=== PATIENT | male | born 1940 | race Caucasian/White ===

== ENCOUNTER 2021-08-24 13:51 | Inpatient (IN) | payer MEDICARE, OTHER, SELFPAY ==
--- NOTE | ~2021-08-24 | XR_ITS ---
EXAMINATION: XR CHEST XR KNEE-LEFT CLINICAL INFORMATION: Status post fall. Left knee pain. COMPARISON: None TECHNIQUE: 2 views of the left knee and single frontal view of the chest (2 images). FINDINGS: Chest: Low lung volumes present bilaterally. Both lungs are clear. Cardiomediastinal silhouette is within normal limits. Retrocardiac soft tissue prominence is present likely represent hiatal hernia. No pleural effusion or pneumothorax. Mild diffuse osteopenia. Left knee: Comminuted left distal femoral fracture is present with approximately 4.4 cm overlapping between the fracture fragments. No radiographic evidence of any patellar condyle of involvement or articular surface extension of the fracture line is present. Severe underlying osteoarthrosis is present involving the lateral and medial compartment. Significant soft tissue swelling is noted around the fracture. XR/XR knee LT 2V IMPRESSION: 1. Comminuted left distal femoral fracture with approximately 4.4 cm overlapping between the fracture fragments. No radiographic evidence of any condyle or articular surface involvement. 2. 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 3. Chest radiograph shows clear lungs.
--- NOTE | ~2021-08-24 | CT_ITS ---
EXAMINATION: CT ANGIOGRAM OF THE CHEST WITH AND WITHOUT CONTRAST (CT PULMONARY ANGIOGRAM FOR PE) CLINICAL INFORMATION: Reason for Exam sob COMPARISON: None TECHNIQUE: Prior to contrast administration, noncontrast localization images were obtained. Subsequently, multidetector volumetric imaging was performed from the thoracic inlet to below the diaphragms following the administration of 65 mL Omnipaque 350 intravenous contrast. No contrast reaction reported Sagittal, coronal, and MIP oblique sagittal reformatted images were obtained on the CT workstation, uploaded to PACS, and reviewed. This CT examination was performed using dose optimization techniques as appropriate, variously including the following: *Automated exposure control *Adjustment of mA and/or kV according to patient size (this includes techniques or standardized protocols for targeted exams where dose is matched to indication/reason for exam; i.e. extremities or head) *Use of iterative reconstruction technique Total exam dose-length product 434 mGy-cm FINDINGS: QUALITY OF STUDY/CONTRAST BOLUS: Satisfactory. PULMONARY ARTERIES: Acute pulmonary embolism present within the distal right main pulmonary artery extending into the upper and lower lobe as well as the middle lobe pulmonary arteries. No pulmonary embolism on left. THORACIC AORTA: No aneurysm or dissection. LUNG: Subsegmental atelectasis present within the dependent lower lobes bilaterally. No focal consolidation. No pneumothorax. PLEURA: No pleural effusion or pneumothorax. MEDIASTINUM: Mild cardiomegaly. Straightening of the interventricular septum, and increased RV:LV ratio, greater than 1 compatible with right heart strain and pulmonary hypertension. No pericardial effusion. No hilar or mediastinal lymphadenopathy. No evidence of septal bowing or right heart strain. CHEST WALL/AXILLA: No axillary or internal mammary lymphadenopathy. OSSEOUS STRUCTURES: No acute or suspicious osseous abnormality. UPPER ABDOMEN: Hepatic steatosis. Calcified periportal and portal caval lymph nodes indicative of prior granulomatous disease. There is a 5.0 cm simple fluid attenuating cyst in the upper pole of left kidney which is benign and follow-up. CT/CT angio chest PE protocol IMPRESSION: * Acute pulmonary emboli within the distal right pulmonary artery, extending into the upper, middle and lower lobe pulmonary arteries. * There is straightening of the interventricular septum with increased RV-LV ratio indicative of pulmonary hypertension. * No evidence of decompensated heart failure. * Hepatic steatosis. VTE: positive This critical result was discussed with Dr Jc Silveira at 08/27/2021 5:25 AM and it was ascertained that the content and urgency of the report was understood at the time of direct communication.
--- NOTE | ~2021-08-24 | US_ITS ---
EXAMINATION: US VENOUS ULTRASOUND WITH DOPPLER LOWER EXTREMITY, BILATERAL CLINICAL INFORMATION: Swelling. Post knee surgery. Question DVT. COMPARISON: Previous exam, most recent 08/24/2021. TECHNIQUE: Ultrasound of the deep veins is performed from the hip to the calf with compression sonography and color and pulse Doppler assessment. Spectral analysis with color-flow imaging is performed. FINDINGS: RIGHT: There is normal venous compression and respiratory variation and augmented flow. The visualized common femoral vein, superficial femoral vein, profunda femoral vein, popliteal vein, and the posterior tibial veins shows no evidence of deep venous thrombosis. The right peroneal veins are not well visualized. There is no significant popliteal fossa cyst. LEFT: The left common femoral and greater saphenous, superficial femoral profunda femoral veins in the upper thigh are patent. The superficial femoral vein in the mid and distal thigh is not visualized. The left popliteal and posterior tibial veins are patent. The left peroneal vein is not visualized. There is no Pearl's cyst. US/US venous duplex LE BI IMPRESSION: Limited exam. No DVT demonstrated in the right lower extremity. The right peroneal veins in the calf are not well visualized. No DVT demonstrated in the left common femoral, greater saphenous, superficial femoral profunda femoral vein in the upper thigh, popliteal vein and posterior tibial veins. The left superficial femoral vein in the mid and distal thigh and left peroneal veins in the calf are not visualized.
--- NOTE | ~2021-08-24 | FL_ITS ---
EXAMINATION: XR FLUOROSCOPY WITH IMAGES CLINICAL INFORMATION: Femoral nail COMPARISON: Radiographs of knee from 08/24/2021 TECHNIQUE: Fluoroscopy performed by Dr. Wolfe. Fluoroscopy time: No data available in our electronic picture archive. DAP: No data available. Images: 5 fluoroscopy images are saved. FL/FL guidance in OR FINDINGS AND IMPRESSION: Interval placement of retrograde femoral nail along with proximal and distal interlocking screws. The fixation hardware is appropriately positioned. The previously displaced comminuted fracture through the supracondylar region of the distal femur has been reduced. There is approximately 1 cm residual posterior displacement of the distal femoral fragment and there is mild overriding of fragments. Again noted is tricompartmental osteoarthritis of the knee which is worst/severe at the lateral tibiofemoral compartment.
--- NOTE | ~2021-08-24 | XR_ITS ---
EXAMINATION: XR CHEST XR KNEE-LEFT CLINICAL INFORMATION: Status post fall. Left knee pain. COMPARISON: None TECHNIQUE: 2 views of the left knee and single frontal view of the chest (2 images). FINDINGS: Chest: Low lung volumes present bilaterally. Both lungs are clear. Cardiomediastinal silhouette is within normal limits. Retrocardiac soft tissue prominence is present likely represent hiatal hernia. No pleural effusion or pneumothorax. Mild diffuse osteopenia. Left knee: Comminuted left distal femoral fracture is present with approximately 4.4 cm overlapping between the fracture fragments. No radiographic evidence of any patellar condyle of involvement or articular surface extension of the fracture line is present. Severe underlying osteoarthrosis is present involving the lateral and medial compartment. Significant soft tissue swelling is noted around the fracture. XR/XR chest 1V IMPRESSION: 1. Comminuted left distal femoral fracture with approximately 4.4 cm overlapping between the fracture fragments. No radiographic evidence of any condyle or articular surface involvement. 2. 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 3. Chest radiograph shows clear lungs.
--- NOTE | ~2021-08-24 | US_ITS ---
EXAMINATION: US VENOUS ULTRASOUND WITH DOPPLER LOWER EXTREMITY, BILATERAL CLINICAL INFORMATION: Bilateral lower extremity swelling. COMPARISON: None TECHNIQUE: Ultrasound of the deep veins is performed from the hip to the calf with compression sonography and color and pulse Doppler assessment. Spectral analysis with color-flow imaging is performed. FINDINGS: RIGHT: There is normal venous compression and respiratory variation and augmented flow. The visualized common femoral vein, superficial femoral vein, profunda femoral vein, popliteal vein, and the trifurcation region shows no evidence of deep venous thrombosis. There is no significant popliteal fossa cyst. LEFT: There is normal venous compression and respiratory variation and augmented flow. The visualized common femoral vein, superficial femoral vein, profunda femoral vein, popliteal vein, and the trifurcation region shows no evidence of deep venous thrombosis. There is no significant popliteal fossa cyst. If the patient's symptoms persist, followup ultrasound in 5 days 7 days might be of value to exclude proximal propagation from a non-visualized calf vein. US/US venous duplex LE BI IMPRESSION: No DVT demonstrated in the bilateral lower extremity.
[2021-08-24 14:02] VITALS: BP 128/81; BP 165/75; PULSE 75; PULSE 79; RESP 20; TEMP 37.2; O2SAT 96; O2SAT 97; BMI 36.5
--- NOTE | 2021-08-24 14:13 | ED_ITS ---
HPI - Fall General Chief Complaint: Extremity Problem Stated Complaint: FALL,BROKEN KNEE Time Seen by Provider: 08/24/21 14:05 Source: patient and EMS Mode of arrival: EMS Limitations: no limitations History of Present Illness HPI Narrative: 81-year-old male with a past medical history of hypertension presenting to the ED via EMS after he had a mechanical fall while he was shopping at the [employer] at the mall with his where he tripped and fell over the clothes rack landed on his left knee and since then he has been unable to walk and has having left knee pain / swelling/ obvious deformity. He denies any head injury or loss of consciousness or any prolonged down time or any symptoms prior to the fall or being on any blood thinners. He reports only pain/ swelling to the left knee otherwise no other symptoms. He reports that he a has chronic bilateral lower extremity edema. He denies any other injuries complaints or concerns at this time. MD complaint: fall Onset (ago): minute(s) ( Prior to arrival) Fall from: standing Fall witnessed: yes, by family and yes, by bystander Place fall occurred: other ( [place] at the mall) Loss of consciousness: none Prolonged down time: no Symptoms prior to fall: none Context: tripped/slipped Location of injury - extremities: left: knee Severity: severe Severity scale (1-10): >10 Quality: other (pain) Associated symptoms (after fall): unable to walk Related Data Home Medications Medication Instructions Recorded Confirmed amlodipine 10 mg tablet 1 tab PO DAILY 08/24/21 08/24/21 atenolol 100 mg tablet 1 tab PO DAILY 08/24/21 08/24/21 chlorthalidone 25 mg tablet 1 tab PO DAILY 08/24/21 08/24/21 Allergies Allergy/AdvReac Type Severity Reaction Status Date / Time lisinopril AdvReac Dizziness Verified 08/24/21 14:05 Review of Systems Review of Systems: Constitutional : No Weight loss, No Fever, No Chills, No Night Sweats, No Fatigue, No Malaise ENT/Mouth : No Hearing loss, No Ear Pain, No Nasal Congestion, No Sinus Pain, No Hoarseness, No sore throat, No Rhinorrhea, No Swallowing Difficulty Eyes: No Eye Pain, No Swelling, No Redness, No Foreign Body, No Discharge, No Vision Changes Cardiovascular : +chronic LE edema, No Chest Pain, No SOB, No Dyspnea on Exertion, No Orthopnea, No Palpitations Respiratory : No Cough, No Sputum, No Wheezing, No Smoke Exposure, No Dyspnea Gastrointestinal : No Nausea, No Vomiting, No Diarrhea, No Constipation, No abdominal Pain, No Hematochezia, No Melena Genitourinary : no irregular bleeding, No Dysuria, No Urinary Frequency, No Hematuria, No Urinary Incontinence, No Urgency, No Flank Pain, No Urinary Flow Changes, No Hesitancy Musculoskeletal : + left knee joint pain/swelling, No Myalgias Skin : No Skin Lesions, No rash Neuro : No Weakness, No Numbness, No Paresthesias, No Loss of Consciousness, No Dizziness, No Headache Psych : No Anxiety/Panic, No Depression, No SI/HI/AH/VH, No Social Issues, Heme/Lymph: No Bruising, No Bleeding,No Lymphadenopathy Endocrine : No Polyuria, No Polydipsia, No Temperature Intolerance Yes all other systems are reviewed and are negative [facility] Past Medical History Attestation statement: The following information was validated with the patient. 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 Blood pressure normal. Heart rate normal. Respiration rate normal. Temperature normal. Oxygen saturation normal. Appearance: Alert. Oriented X3. No acute distress. Head: Normal external exam. Normocephalic. Atraumatic. No Dc signs noted. No raccoon eyes noted Eyes: PERRLA. EOMI. Conjunctiva and sclera normal. Eyelids normal. ENT: EAC normal. TM's Normal. No septal hematoma noted. No hemotympanum noted. Pharynx normal. Uvula midline. Moist mucous membranes. No lesions/ulcerations or masses noted on the tongue. Normal voice. No trismus noted. No drooling noted. No muffled voice noted. Neck: Normal inspection. Neck supple. FROM. No adenopathy. Thyroid Normal. No tracheal deviation noted. No crepitus is noted. No meningeal signs. No neck mass noted. No signs of trauma noted. CVS: Normal heart rate and rhythm. Heart sound normal. Pulses normal throughout. No murmurs/rales/gallops. Respiratory: No respiratory distress. Painless inspiration. Breath sounds normal. No wheezes/rales/rhonchi noted. Chest nontender. No crepitus is noted. No signs of trauma noted. No accessory muscle usage noted or decreased air movement noted. No signs of trauma. Abdomen: Soft and nontender. Bowel sounds normal in all 4 quadrants. No distention noted. No organomegaly noted. No visible injury noted. Back: No CVA tenderness. Full range of motion noted. Nontender. No signs of trauma. Patient neuro intact bilaterally and distally on all 4 extremities. Patient's reflexes intact bilaterally and distally on all 4 extremities. No rashes/lesion/induration/fluctuance or signs of infection noted. Skin: Skin warm and dry. Normal skin color. Normal skin turgor. No rashes/lesions/lacerations noted. Extremities: patient has moderate tenderness palpation to the left knee with limited range of motion due to pain / swelling possible deformity. Otherwise no pain to the left ankle/foot/hip joint. He is moving the right foot/ankle /knee /hip joint without any pain. He does have bilateral lower extremity edema that is pitting. Otherwise no calf tenderness is noted. 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 Otherwise all other Extremities exhibit normal range of motion and nontender. Neuro: Oriented X 3. No motor deficit. No sensory deficit. Reflexes normal. No focal neuro deficits noted. CN's II-XII intact bilaterally? Vascular: + radial pulses/+ 2 distal pedal pulses/+2 dorsalis pedis b/l. Normal cap refill. No cyanosis noted to upper extremity nails and lower extremity toes nails. Course Course Course Narrative: 2:20pm - 81-year-old male with a past medical history of hypertension presenting to the ED via EMS after he had a mechanical fall while he was shopping at the [employer] at the mall with his where he tripped and fell over the clothes rack landed on his left knee and since then he has been unable to walk and has having left knee pain / swelling/ obvious deformity. He denies any head injury or loss of consciousness or any prolonged down time or any symptoms prior to the fall or being on any blood thinners. He reports only pain/ swelling to the left knee otherwise no other symptoms. He reports that he a has chronic bilateral lower extremity edema. Plan: labs, chest x-ray, x-ray of left knee. Provide 4 mg of Zofran and 0.5 mg of Dilaudid and re-evaluate Reevaluation(s) Reevaluation #1: - Sodium at 132. Chloride 91. BUN 17. Random glucose 129. Total bilirubin 1.2. Otherwise all other labs are within normal limits. - Patient with the distal femoral fracture therefore I consulted with Aure orthopedic PA and she recommended admitting to the hospitalist and they consult and perform surgery tomorrow although Dr. Daniel on the hospitalist reports that since the patient only has hypertension that they should be admitted to the orthopedic service and that the hospitalist will consult. Will wait to see where the patient will be admitted at this time. Otherwise patient was updated and at bedside and they understand and agree with the plan. Knee immobilizer ordered as well for comfort although patient does not need to have it at all times per orthopedic PA. will re-evaluate and continue to monitor. Time: 15:07 Reevaluation #2: Venous duplex ultrasound of bilateral lower extremity negative for DVT. Patient will be admitted to the hospitalist service that Dr. Daniel service. Patient and family at bedside understand agree this plan. Time: 16:42 MDM - Fall Medical Records Attestation: I reviewed the patient's medical records. Lab Data Attestation: I reviewed the patient's lab results. Result diagrams: 08/24/21 14:32 08/24/21 14:32 Labs: Lab Results 08/24/21 08/24/21 08/24/21 Range/Units 14:32 14:32 14:32 WBC 7.0 (4.8-10.8) X10*3/uL RBC 4.87 (4.60-5.80) X10*6/uL Hgb 15.9 (14.0-18.0) g/dl Hct 45.1 (42.0-52.0) % MCV 92.6 (80.0-98.0) fL MCH 32.6 (27.0-33.0) pg MCHC 35.3 (31.0-36.0) g/dl RDW 11.8 (11.0-16.0) % Plt Count 255 (160-400) X10*3/uL MPV 8.5 L (9.4-12.4) fL Immature Gran % (Auto) 0.6 H (0.0-0.4) % Neut % (Auto) 70.2 (45-73) % Lymph % (Auto) 16.6 L (20-40) % [place] % (Auto) 10.8 (2-11) % Eos % (Auto) 1.4 (0-4) % Baso % (Auto) 0.4 (0-2) % Lymph # (Auto) 1.2 (1.2-4.9) X10*3/uL [place] # (Auto) 0.8 (0.1-1.2) X10*3/uL Eos # (Auto) 0.1 (0.0-0.4) X10*3/uL Baso # (Auto) 0.0 (0.0-0.2) X10*3/uL Abs Immat Gran (auto) 0.04 H (0.00-0.03) X10*3/uL Absolute Neuts (auto) 4.9 (2.0-8.3) x10*3/uL Absolute Nucleated RBC 0.000 (0.0-0.012) X10*3/uL Nucleated RBC % (auto) 0.0 (0.0-0.2) /100WBC PT 11.7 (9.9-13.0) SEC INR 1.0 (0.9-1.1) Sodium 132 L (135-145) mmol/L Potassium 3.6 (3.3-5.1) mmol/L Chloride 91 L (96-108) mmol/L Carbon Dioxide 27 (22-29) mmol/L Anion Gap 18 (12-20) BUN 17 H (9-16) mg/dL Creatinine 0.98 (0.5-1.4) mg/dL Estim Creat Clear Calc 71.9 Estimated GFR > 60 Random Glucose 129 H (60-115) mg/dL Calcium 9.5 (8.4-10.2) mg/dL Magnesium 2.2 (1.6-2.6) mg/dL Total Bilirubin 1.2 H (0.0-1.0) mg/dL AST 29 (5-37) U/L ALT 32 (0-40) U/L Alkaline Phosphatase 85 (39-117) U/L B-Natriuretic Peptide (<100) pg/mL Total Protein 7.4 (6.5-8.0) g/dL Albumin 4.4 (3.5-5.0) g/dL 08/24/21 Range/Units 14:32 WBC (4.8-10.8) X10*3/uL RBC (4.60-5.80) X10*6/uL Hgb (14.0-18.0) g/dl Hct (42.0-52.0) % MCV (80.0-98.0) fL MCH (27.0-33.0) pg MCHC (31.0-36.0) g/dl RDW (11.0-16.0) % Plt Count (160-400) X10*3/uL MPV (9.4-12.4) fL Immature Gran % (Auto) (0.0-0.4) % Neut % (Auto) (45-73) % Lymph % (Auto) (20-40) % [place] % (Auto) (2-11) % Eos % (Auto) (0-4) % Baso % (Auto) (0-2) % Lymph # (Auto) (1.2-4.9) X10*3/uL [place] # (Auto) (0.1-1.2) X10*3/uL Eos # (Auto) (0.0-0.4) X10*3/uL Baso # (Auto) (0.0-0.2) X10*3/uL Abs Immat Gran (auto) (0.00-0.03) X10*3/uL Absolute Neuts (auto) (2.0-8.3) x10*3/uL Absolute Nucleated RBC (0.0-0.012) X10*3/uL Nucleated RBC % (auto) (0.0-0.2) /100WBC PT (9.9-13.0) SEC INR (0.9-1.1) Sodium (135-145) mmol/L Potassium (3.3-5.1) mmol/L Chloride (96-108) mmol/L Carbon Dioxide (22-29) mmol/L Anion Gap (12-20) BUN (9-16) mg/dL Creatinine (0.5-1.4) mg/dL Estim Creat Clear Calc Estimated GFR Random Glucose (60-115) mg/dL Calcium (8.4-10.2) mg/dL Magnesium (1.6-2.6) mg/dL Total Bilirubin (0.0-1.0) mg/dL AST (5-37) U/L ALT (0-40) U/L Alkaline Phosphatase (39-117) U/L B-Natriuretic Peptide 41 (<100) pg/mL Total Protein (6.5-8.0) g/dL Albumin (3.5-5.0) g/dL Imaging Data Chest x-ray: Attestation: I personally reviewed and interpreted this imaging study as follows: Radiologist's impression: FINDINGS: Chest: Low lung volumes present bilaterally. Both lungs are clear. Cardiomediastinal silhouette is within normal limits. Retrocardiac soft tissue prominence is present likely represent hiatal hernia. No pleural effusion or pneumothorax. Mild diffuse osteopenia. left knee x-ray: Attestation: I personally reviewed and interpreted this imaging study as follows: My impression: left comminuted distal femoral fracture. Radiologist's impression: Left knee: Comminuted left distal femoral fracture is present with approximately 4.4 cm overlapping between the fracture fragments. No radiographic evidence of any patellar condyle of involvement or articular surface extension of the fracture line is present. Severe underlying osteoarthrosis is present involving the lateral and medial compartment. Significant soft tissue swelling is noted around the fracture.? venous duplex ultrasound of bilateral lower extremity: Attestation: I personally reviewed and interpreted this imaging study as follows: Radiologist's impression: FINDINGS: RIGHT: There is normal venous compression and respiratory variation and augmented flow. The visualized common femoral vein, superficial femoral vein, profunda femoral vein, popliteal vein, and the trifurcation region shows no evidence of deep venous thrombosis. ? There is no significant popliteal fossa cyst. LEFT: There is normal venous compression and respiratory variation and augmented flow. The visualized common femoral vein, superficial femoral vein, profunda femoral vein, popliteal vein, and the trifurcation region shows no evidence of deep venous thrombosis. ? There is no significant popliteal fossa cyst. If the patient's symptoms persist, followup ultrasound in 5 days 7 days might be of value to exclude proximal propagation from a non-visualized calf vein. US/US venous duplex LE BI IMPRESSION: No DVT demonstrated in the bilateral lower extremity. ECG Data Attestation: I personally reviewed and interpreted this ECG as follows: ECG interpretation date: 08/24/21 ECG interpretation time: 15:11 Interpretation: normal sinus rhythm with ventricular rate of 69 with a normal [place] interval normal and nonspecific ST abnormalities no acute ischemic change are noted. No prior EKGs to compare to in our system. Repeat EKG because the tech did not believe the 1st EKG was a great read therefore she repeated it which was at 15: 16pm which was sinus rhythm with first-degree AV block with ventricular rate of [address] abnormalities no acute ischemic changes similar compared to prior EKG no other EKGs to compare to other than the two that were done today. Critical Care Time Critical Care Time Critical Care Time: Yes Total Critical Care Time: 60 Attestation: I personally attest to this time spent taking care of the patient Discharge Plan Discharge Clinical Impression: Femoral distal fracture, Fall, Acute hyponatremia, Pedal edema Patient Disposition: Admitted As Inpatient
[2021-08-24 14:35] LABS: MANUAL DIFF FLAG NO
[2021-08-24 14:37] LABS: Basophils Percent Auto 0.4 % (0-2); Eosinophils Absolute Auto 0.1 X10*3/uL (0.0-0.4); Eosinophils Percent Auto 1.4 % (0-4); Hematocrit 45.1 % (42.0-52.0); Hemoglobin 15.9 g/dl (14.0-18.0); Imm Gran Abs Auto 0.04 X10*3/uL (0.00-0.03); Imm Gran Pct Auto 0.6 % (0.0-0.4); Lymphocytes Absolute Auto 1.2 X10*3/uL (1.2-4.9); Lymphocytes Percent Auto 16.6 % (20-40); Mean Corpuscular HGB Conc 35.3 g/dl (31.0-36.0); Mean Corpuscular Hemoglobin 32.6 pg (27.0-33.0); Mean Corpuscular Volume 92.6 fL (80.0-98.0); Mean Platelet Volume 8.5 fL (9.4-12.4); Monocytes Absolute Auto 0.8 X10*3/uL (0.1-1.2); Monocytes Percent Auto 10.8 % (2-11); Neutrophils Absolute Auto 4.9 x10*3/uL (2.0-8.3); Neutrophils Percent Auto 70.2 % (45-73); Platelet Count 255 X10*3/uL (160-400); Red Blood Count 4.87 X10*6/uL (4.60-5.80); Red Cell Distribution Width 11.8 % (11.0-16.0)
[2021-08-24] MEDS: HYDROmorphone HCl 0.5 MG/0.5 ML SYRINGE IVPUSH (14:37)
[2021-08-24] MEDS: ondansetron HCL 4 MG/2 ML VIAL IVPUSH (14:37)
[2021-08-24 14:38] VITALS: BP 134/80; PULSE 71; RESP 18; O2SAT 97
[2021-08-24 14:41] LABS: Prothrombin Time 11.7 SEC (9.9-13.0)
[2021-08-24 14:56] LABS: B Type Natriuretic Peptide 41 pg/mL (<100)
[2021-08-24 15:05] LABS: Alanine Aminotransferase 32 U/L (0-40); Albumin Level 4.4 g/dL (3.5-5.0); Alkaline Phosphatase 85 U/L (39-117); Anion Gap 18 (12-20); Aspartate Amino Transferase 29 U/L (5-37); Bilirubin Total 1.2 mg/dL (0.0-1.0); Blood Urea Nitrogen 17 mg/dL (9-16); Calcium 9.5 mg/dL (8.4-10.2); Carbon Dioxide 27 mmol/L (22-29); Chloride 91 mmol/L (96-108); Creatinine Clr Calc Pharmacy 71.9; Estimated Glomerular Filt Rate > 60; Glucose Random 129 mg/dL (60-115); Magnesium 2.2 mg/dL (1.6-2.6); Potassium 3.6 mmol/L (3.3-5.1); Sodium 132 mmol/L (135-145); Total Protein 7.4 g/dL (6.5-8.0)
--- NOTE | 2021-08-24 15:07 | ECG_ITS ---
Test Reason : MED CLEARANCE Blood Pressure : / mmHG Vent. Rate : 069 BPM Atrial Rate : 069 BPM P-R Int : 202 ms QRS Dur : 094 ms QT Int : 424 ms P-R-T Axes : 038 -26 -13 degrees QTc Int : 454 ms Normal sinus rhythm Possible Anterior infarct , age undetermined Inferior infarct Inferior T wave inversions Abnormal ECG No previous ECGs available Referred By: Ellen Veloz Electronically Signed By:Carlos Taylor
--- NOTE | 2021-08-24 15:18 | ECG_ITS ---
Test Reason : REPEAT MED CLEARANCE Blood Pressure : / mmHG Vent. Rate : 067 BPM Atrial Rate : 067 BPM P-R Int : 220 ms QRS Dur : 098 ms QT Int : 434 ms P-R-T Axes : 045 -23 -05 degrees QTc Int : 458 ms Sinus rhythm with 1st degree A-V block Minimal voltage criteria for LVH, may be normal variant ( R in aVL ) Possible Anterior infarct (cited on or before 24-AUG-2021) Abnormal ECG When compared with ECG of 24-AUG-2021 15:11, No significant change was found Referred By: Ellen Veloz Electronically Signed By:Carlos Taylor
--- NOTE | 2021-08-24 15:51 | P.HPHOSP_ITS ---
History of Present Illness Date of Service: 08/24/21 Chief Complaint: Fall, knee pain An 81 years old male with PMH of hypertension who presents to the hospital complaining of left knee pain after sustaining a fall. The patient was at the [employer] shopping in [place] when he tripped and fell over close track and fell on his left knee with shooting pain started at that moment associated with swelling and obvious deformity as he was unable to put any weight on his knee. He reports people helped him back to his chair but denies any head injury, lightheadedness, dizziness, chest pain, palpitation, change in bowel habit or urinary symptoms. He presented by EMS to the emergency where an x-ray was consistent with Comminuted left distal femoral fracture with approximately 4.4 cm overlapping between the fracture fragments.? The patient will be admitted to the hospital for further evaluation and surgical intervention. Review of Systems Review of Systems: No fever, chills or weakness No chest pain, palpitation , bilateral lower extremity swelling No shortness of breath or coughing No abdominal pain, nausea or vomiting No urinary symptoms No any rash or wounds Left knee pain and swelling PMFSH Medical History HTN (hypertension) Family History Father Hypertension Social History Advance Directives: No Advance Directives Information Provided: No Meds Allergies Allergy/AdvReac Type Severity Reaction Status Date / Time lisinopril AdvReac Dizziness Verified 08/24/21 14:05 Active Medications: Current Medications Sodium Chloride (Ns) 1,000 mls @ 999 mls/hr IVCONT .Q1H1M PRANAV Stop: 08/24/21 16:15 Pharmacy Consult (Consult Rx Perform Med Rec) 1 each MISCELLANE ONCE PRN PRN Reason: Consult order Home Medications Medication Instructions Recorded Confirmed Last Taken Type amlodipine 10 mg tablet 1 tab PO DAILY 08/24/21 08/24/21 Unknown History atenolol 100 mg tablet 1 tab PO DAILY 08/24/21 08/24/21 Unknown History chlorthalidone 25 mg tablet 1 tab PO DAILY 08/24/21 08/24/21 Unknown History Physical Exam Vital Signs and Narrative: Vital Signs: Last Vital Signs Temp 98.9 F 08/24/21 14:02 Pulse 71 08/24/21 14:38 Resp 18 08/24/21 14:38 BP 134/80 08/24/21 14:38 Pulse Ox 97 08/24/21 14:38 BMI result Body Mass Index 36.5 Const: Other: Constitutional : Alert, oriented, not in distress Neck : Normal inspection, Supple Cardiovascular : RRR, S1 S2, +2 bilateral lower extremity edema Respiratory : Good bilateral air entry, no crackles, wheezes or rhonchi Gastrointestinal: soft, lax, Normal bowel sounds, Non tender Skin : Warm, Dry, bilateral lower extremity stasis dermatitis picture. Musculoskeletal: Left knee swollen with mild erythema and severe tenderness with palpation, significant decreased range of motion with severe pain upon any minimal movement. Neurological : Alert & oriented x3, No focal deficit Results Labs CBC and Chem 7: 08/24/21 14:32 08/24/21 14:32 Labs: Laboratory Results - last 24 hr 08/24/21 08/24/21 08/24/21 14:32 14:32 14:32 MCV 92.6 MCH 32.6 MCHC 35.3 RDW 11.8 Plt Count 255 MPV 8.5 L Immature Gran % (Auto) 0.6 H Neut % (Auto) 70.2 Lymph % (Auto) 16.6 L [place] % (Auto) 10.8 Eos % (Auto) 1.4 Baso % (Auto) 0.4 Lymph # (Auto) 1.2 [place] # (Auto) 0.8 Eos # (Auto) 0.1 Baso # (Auto) 0.0 Abs Immat Gran (auto) 0.04 H Absolute Neuts (auto) 4.9 Absolute Nucleated RBC 0.000 Nucleated RBC % (auto) 0.0 PT 11.7 INR 1.0 Anion Gap 18 Estim Creat Clear Calc 71.9 Estimated GFR > 60 Random Glucose 129 H Calcium 9.5 Magnesium 2.2 Total Bilirubin 1.2 H AST 29 ALT 32 Alkaline Phosphatase 85 B-Natriuretic Peptide Total Protein 7.4 Albumin 4.4 08/24/21 14:32 MCV MCH MCHC RDW Plt Count MPV Immature Gran % (Auto) Neut % (Auto) Lymph % (Auto) [place] % (Auto) Eos % (Auto) Baso % (Auto) Lymph # (Auto) [place] # (Auto) Eos # (Auto) Baso # (Auto) Abs Immat Gran (auto) Absolute Neuts (auto) Absolute Nucleated RBC Nucleated RBC % (auto) PT INR Anion Gap Estim Creat Clear Calc Estimated GFR Random Glucose Calcium Magnesium Total Bilirubin AST ALT Alkaline Phosphatase B-Natriuretic Peptide 41 Total Protein Albumin Imaging Radiologist's Impressions: Impressions Chest X-Ray 08/24/21 14:25 IMPRESSION: 1. Comminuted left distal femoral fracture with approximately 4.4 cm overlapping between the fracture fragments. No radiographic evidence of any condyle or articular surface involvement. 2. 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 3. Chest radiograph shows clear lungs. Knee X-Ray 08/24/21 14:25 IMPRESSION: 1. Comminuted left distal femoral fracture with approximately 4.4 cm overlapping between the fracture fragments. No radiographic evidence of any condyle or articular surface involvement. 2. 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 3. Chest radiograph shows clear lungs. Assessment and Plan (1) Femoral distal fracture: Status: Acute (2) Acute hyponatremia: Status: Acute (3) Fall: Status: Acute (4) Pedal edema: Status: Acute Plan An 81 years old male with PMH of hypertension who presents to the hospital complaining of left knee pain after sustaining a fall. Femoral distal fracture 2/2 mechanical fall Comminuted with fragments based on x-ray of the knee IV morphine for pain management Keep NPO post midnight Orthopedic to do surgery in the morning To do physical therapy evaluation For lower extremity edema Check ultrasound to rule out DVT Likely stasis dermatitis with fluid overload To give IV Lasix Consider [place]by wrap or compression stocking as outpatient Hyponatremia Na of 132 Secondary to chlorthalidone, to hold Monitor BMP Hypertension Hold amlodipine and chlorthalidone continue atenolol DVT PPX Heparin Quality Stroke Does the patient have a stroke diagnosis?: No VTE Prior VTE?: No VTE Risk Level:: Medical - moderate - high VTE Device Contraindication: Treatment Not Indicated VTE Drug Contraindication: N/A - Med Ordered
--- NOTE | 2021-08-24 16:05 | PM.CNOR ---
History of Present Illness HPI Consult date: 08/24/21 Chief complaint: FALL,BROKEN KNEE Narrative: This is an 81 yo male who presented tot he ED after sustaining a mechanical fall. He states he was out shopping at [employer] when he tripped over a clothing rack and landed on the knee. He was unable to get up and ambulate. He was brought in by EMS. While in the ED, xrays of the knee showed a displaced distal femur fracture. he was admitted to the medical service and orthopedics was consulted for ortho eval. Review of Systems Review of Systems: per 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 Social History Social History Advance Directives: No Advance Directives Information Provided: No Meds Allergies Allergy/AdvReac Type Severity Reaction Status Date / Time lisinopril AdvReac Dizziness Verified 08/24/21 14:05 Active Medications: Current Medications Acetaminophen (Acetaminophen 325 Mg Tablet) 650 mg PO Q6H PRN PRN Reason: Pain, Mild (Pain Scale 1-3) Atenolol (Atenolol 100 Mg Tablet) 100 mg PO DAILY PRANAV; Protocol Enoxaparin Sodium (Enoxaparin Sodium 40 Mg/0.4 Ml Syringe) 40 mg SUBCUT Q24H [facility] Heparin Sodium (Porcine) (Heparin Sodium,Porcine 5,000 Unit/Ml Vial) 5,000 unit SUBCUT Q8H [facility] Stop: 08/25/21 01:00 Sodium Chloride (Ns) 1,000 mls @ 999 mls/hr IVCONT .Q1H1M [facility] Stop: 08/24/21 16:15 Morphine Sulfate (Morphine Sulfate 4 Mg/Ml Cartridge) 4 mg IVPUSH Q4H PRN; Protocol PRN Reason: Pain, Severe (Pain Scale 7-10) Ondansetron HCl (Ondansetron Hcl 4 Mg/2 Ml Vial) 4 mg IVPUSH Q8H PRN PRN Reason: Nausea and Vomiting Pharmacy Consult (Consult Rx Perform Med Rec) 1 each MISCELLANE ONCE PRN PRN Reason: Consult order Sodium Chloride (0.9 % Sodium Chloride Flush 3 Ml Syringe) [facility] Home Medications Medication Instructions Recorded Confirmed Last Taken Type amlodipine 10 mg tablet 1 tab PO DAILY 08/24/21 08/24/21 Unknown History atenolol 100 mg tablet 1 tab PO DAILY 08/24/21 08/24/21 Unknown History chlorthalidone 25 mg tablet 1 tab PO DAILY 08/24/21 08/24/21 Unknown History Physical Exam Vital Signs: Vital Signs: Last Vital Signs Temp 98.9 F 08/24/21 14:02 Pulse 71 08/24/21 14:38 Resp 18 08/24/21 14:38 BP 134/80 08/24/21 14:38 Pulse Ox 97 08/24/21 14:38 BMI result Body Mass Index 36.5 Const: General: cooperative, healthy appearing, comfortable, no acute distress, well developed and alert Orientation/consciousness: patient oriented x3 HEENT: Head: Yes normal to inspection, Yes normocephalic and Yes atraumatic Eyes: General: appearance normal, both eyes and all related structures Neck: Neck: Yes normal visual inspection and Yes no lymphadenopathy Resp: Effort & Inspection: normal respiratory effort and able to speak in complete sentences Cardio: Rate: regular rate Peripheral pulses: Peripheral pulses 2+ throughout GI: Inspection: Yes normal to inspection Palpation (GI): Soft to palpation Skin: General skin exam: no rashes or lesions noted Neuro: General: patient oriented x3 Extrem: Other: Left knee skin intact, no erythema or open wounds. Mild effusion . Tenderness to palpation . There is bilateral lower extremity edema with venous stasis. NVI. Psych: Appearance: grossly normal Mental Status: mental status grossly normal Results Labs Result Diagrams: 08/24/21 14:32 08/24/21 14:32 Labs: Abnormal lab results 08/24/21 08/24/21 Range/Units 14:32 14:32 MPV 8.5 L (9.4-12.4) fL Immature Gran % (Auto) 0.6 H (0.0-0.4) % Lymph % (Auto) 16.6 L (20-40) % Abs Immat Gran (auto) 0.04 H (0.00-0.03) X10*3/uL Sodium 132 L (135-145) mmol/L Chloride 91 L (96-108) mmol/L BUN 17 H (9-16) mg/dL Random Glucose 129 H (60-115) mg/dL Total Bilirubin 1.2 H (0.0-1.0) mg/dL H & H 08/24/21 Range/Units 14:32 Hgb 15.9 (14.0-18.0) g/dl Hct 45.1 (42.0-52.0) % Coagulation 08/24/21 Range/Units 14:32 INR 1.0 (0.9-1.1) All other labs normal. Assessment and Plan (1) Femoral distal fracture: Status: Acute Plan I discussed the case with Dr Sahni and explained the extent of the injury to the patient and options available which include surgical intervention. I explained the procedure in detail along with the length of recovery and rehab course. I explained the risk, benefits and alternatives. Risk including, but not limited to infection, blood clots, bleeding, non union or malunion and nerve/tissue damage to surrounding areas. I answered all their questions and with their understanding they have consented to move forward with Operative Fixation of the left distal femur .med clearance will be obtained and NPO after midnight. Procedures Date of Service Date of Service: 08/24/21
[2021-08-24 16:13] VITALS: BP 126/66; PULSE 66; RESP 17; O2SAT 95
[2021-08-24] MEDS: Heparin Sodium,Porcine 5,000 UNIT/ML VIAL 5000 UNIT SUBCUT (16:18)
[2021-08-24] MEDS: Furosemide 20 MG/2 ML VIAL IVPUSH (16:18)
--- NOTE | 2021-08-24 16:21 | PHA.MEDREC ---
Pharmacy Consult ? Medication Reconciliation Pharmacy has completed the medication reconciliation. pt took meds today at 0600.
[2021-08-24] MEDS: 0.9 % Sodium Chloride 1,000 ML 999 ML IVCONT (16:24)
[2021-08-24] MEDS: 0.9 % Sodium Chloride Flush 3 ML SYRINGE IVFLUSH (16:29)
[2021-08-24 16:32] LABS: COVID-19 Test Negative (Negative)
[2021-08-24] MEDS: Morphine Sulfate 4 MG/ML CARTRIDGE IVPUSH ×2 (16:53→21:09)
[2021-08-24 16:54] VITALS: BP 133/65; PULSE 62; RESP 20; O2SAT 97
[2021-08-24 19:45] VITALS: BP 130/62; PULSE 70; RESP 18; TEMP 37; O2SAT 95
[2021-08-24 23:41] VITALS: BP 144/69; PULSE 80; RESP 16; TEMP 36.5; O2SAT 91
[2021-08-25] VITALS (14 sets, daily range): BP systolic 113–154; BP diastolic 61–84; PULSE 62–80; RESP 15–20; TEMP 36.1–37.3; O2SAT 90–99
[2021-08-25] MEDS: 0.9 % Sodium Chloride Flush 3 ML SYRINGE IVFLUSH ×3 (01:59→17:31)
[2021-08-25] MEDS: Morphine Sulfate 4 MG/ML CARTRIDGE IVPUSH ×2 (01:59→21:04)
[2021-08-25 06:03] LABS: Hematocrit 38.5 % (42.0-52.0); Hemoglobin 13.6 g/dl (14.0-18.0); Mean Corpuscular HGB Conc 35.3 g/dl (31.0-36.0); Mean Corpuscular Hemoglobin 32.9 pg (27.0-33.0); Mean Platelet Volume 9.1 fL (9.4-12.4); Platelet Count 227 X10*3/uL (160-400); Red Blood Count 4.14 X10*6/uL (4.60-5.80); Red Cell Distribution Width 11.9 % (11.0-16.0); White Blood Count 8.7 X10*3/uL (4.8-10.8)
[2021-08-25 06:25] LABS: Anion Gap 12 (12-20); Blood Urea Nitrogen 18 mg/dL (9-16); Calcium 8.6 mg/dL (8.4-10.2); Carbon Dioxide 30 mmol/L (22-29); Chloride 92 mmol/L (96-108); Estimated Glomerular Filt Rate > 60; Glucose Random 129 mg/dL (60-115); Potassium 3.2 mmol/L (3.3-5.1); Sodium 131 mmol/L (135-145)
[2021-08-25] MEDS: atenoloL 100 MG TABLET PO (08:09)
--- NOTE | 2021-08-25 08:23 | P.CONAN_ITS ---
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 If so, by whom?: No Do you feel safe in your current relationship?: Yes Is there a partner from a previous relationship who is making you feel unsafe now?: No Are you made to feel afraid or neglected: No Caodaism Healthcare Practices: Jehova witness Advance Directives: No Advance Directives Information Provided: No Do you have thoughts of harming others: None Do you have a plan to hurt others: No Plan Recently lost weight without trying: No Nutrition Risks: No Nutritional Risk Meds Allergies Allergy/AdvReac Type Severity Reaction Status Date / Time lisinopril AdvReac Dizziness Verified 08/24/21 14:05 Active Medications: Current Medications Acetaminophen (Acetaminophen 325 Mg Tablet) 650 mg PO Q6H PRN PRN Reason: Pain, Mild (Pain Scale 1-3) Atenolol (Atenolol 100 Mg Tablet) 100 mg PO DAILY PRANAV; Protocol Last Admin: 08/25/21 08:09 Dose: 100 mg Documented by: Enoxaparin Sodium (Enoxaparin Sodium 40 Mg/0.4 Ml Syringe) 40 mg SUBCUT Q24H [facility] Fentanyl (Fentanyl Citrate/Pf 100 Mcg/2 Ml Vial) 50 mcg IVPUSH Q5M PRN; Protocol PRN Reason: Pain, Severe (Pain Scale 7-10) Promethazine HCl 12.5 mg/ (Sodium Chloride) 50.5 mls @ 202 mls/hr IV ONCE PRN PRN Reason: Nausea and Vomiting Potassium Chloride () 10 meq in 100 mls @ 100 mls/hr IV Q1H [facility] Stop: 08/25/21 10:14 Lactic Acid (Ammonium Lactate 12 % Lotion 226 Gm Bottle) 1 appl TOPICAL BID [facility]; Protocol Last Admin: 08/25/21 08:10 Dose: Not Given Documented by: Morphine Sulfate (Morphine Sulfate 4 Mg/Ml Cartridge) 4 mg IVPUSH Q4H PRN; Protocol PRN Reason: Pain, Severe (Pain Scale 7-10) Last Admin: 08/25/21 01:59 Dose: 4 mg Documented by: Ondansetron HCl (Ondansetron Hcl 4 Mg/2 Ml Vial) 4 mg IVPUSH Q8H PRN PRN Reason: Nausea and Vomiting Ondansetron HCl (Ondansetron Hcl 4 Mg/2 Ml Vial) 4 mg IVPUSH ONCE PRN PRN Reason: Nausea and Vomiting Oxycodone HCl (Oxycodone Hcl Immed Release 5 Mg Tablet) 5 mg PO ONCE PRN PRN Reason: Pain, Severe (Pain Scale 7-10) Pharmacy Consult (Consult Rx Perform Med Rec) 1 each MISCELLANE ONCE PRN PRN Reason: Consult order Sodium Chloride (0.9 % Sodium Chloride Flush 3 Ml Syringe) [facility] Last Admin: 08/25/21 08:09 Dose: 3 ml Documented by: Home Medications Medication Instructions Recorded Confirmed Last Taken Type amlodipine 10 mg tablet 1 tab PO DAILY 08/24/21 08/24/21 08/24/21 06:00 History atenolol 100 mg tablet 1 tab PO DAILY 08/24/21 08/24/21 08/24/21 06:00 History chlorthalidone 25 mg tablet 1 tab PO DAILY 08/24/21 08/24/21 08/24/21 06:00 History Exam Exam Date and Time: August 25, 2021 0823 Height,Weight and Vital Signs: Height 5 ft 8 in Weight 109 kg Last Vital Signs Temp 97 F 08/25/21 07:00 Pulse 79 08/25/21 07:00 Resp 16 08/25/21 07:00 BP 138/63 08/25/21 07:00 Pulse Ox 92 08/25/21 07:00 Pertinent Lab Results Pertinent Lab Results: Laboratory Tests 08/24/21 08/24/21 08/24/21 14:32 14:32 14:32 WBC 7.0 RBC 4.87 Hgb 15.9 Hct 45.1 MCV 92.6 MCH 32.6 MCHC 35.3 RDW 11.8 Plt Count 255 MPV 8.5 L Immature Gran % (Auto) 0.6 H Neut % (Auto) 70.2 Lymph % (Auto) 16.6 L [place] % (Auto) 10.8 Eos % (Auto) 1.4 Baso % (Auto) 0.4 Lymph # (Auto) 1.2 [place] # (Auto) 0.8 Eos # (Auto) 0.1 Baso # (Auto) 0.0 Abs Immat Gran (auto) 0.04 H Absolute Neuts (auto) 4.9 Absolute Nucleated RBC 0.000 Nucleated RBC % (auto) 0.0 PT 11.7 INR 1.0 Sodium 132 L Potassium 3.6 Chloride 91 L Carbon Dioxide 27 Anion Gap 18 BUN 17 H Creatinine 0.98 Estim Creat Clear Calc 71.9 Estimated GFR > 60 Random Glucose 129 H Calcium 9.5 Magnesium 2.2 Total Bilirubin 1.2 H AST 29 ALT 32 Alkaline Phosphatase 85 B-Natriuretic Peptide Total Protein 7.4 Albumin 4.4 COVID-19 (ELI) COVID-19 Clin Com 08/24/21 08/24/21 08/25/21 14:32 16:02 05:32 WBC 8.7 RBC 4.14 L Hgb 13.6 L Hct 38.5 L MCV 93.0 MCH 32.9 MCHC 35.3 RDW 11.9 Plt Count 227 MPV 9.1 L Immature Gran % (Auto) Neut % (Auto) Lymph % (Auto) [place] % (Auto) Eos % (Auto) Baso % (Auto) Lymph # (Auto) [place] # (Auto) Eos # (Auto) Baso # (Auto) Abs Immat Gran (auto) Absolute Neuts (auto) Absolute Nucleated RBC 0.000 Nucleated RBC % (auto) 0.0 PT INR Sodium Potassium Chloride Carbon Dioxide Anion Gap BUN Creatinine Estim Creat Clear Calc Estimated GFR Random Glucose Calcium Magnesium Total Bilirubin AST ALT Alkaline Phosphatase B-Natriuretic Peptide 41 Total Protein Albumin COVID-19 (ELI) Negative COVID-19 Clin Com See Note 08/25/21 05:32 WBC RBC Hgb Hct MCV MCH MCHC RDW Plt Count MPV Immature Gran % (Auto) Neut % (Auto) Lymph % (Auto) [place] % (Auto) Eos % (Auto) Baso % (Auto) Lymph # (Auto) [place] # (Auto) Eos # (Auto) Baso # (Auto) Abs Immat Gran (auto) Absolute Neuts (auto) Absolute Nucleated RBC Nucleated RBC % (auto) PT INR Sodium 131 L Potassium 3.2 L Chloride 92 L Carbon Dioxide 30 H Anion Gap 12 BUN 18 H Creatinine 0.86 Estim Creat Clear Calc 82.0 Estimated GFR > 60 Random Glucose 129 H Calcium 8.6 D Magnesium Total Bilirubin AST ALT Alkaline Phosphatase B-Natriuretic Peptide Total Protein Albumin COVID-19 (ELI) COVID-19 Clin Com Airway Mallampati Class: II TM Dist: >3cm Neck ROM: Full Partial: Upper Assessment and Plan Assessment Anesthesia Assessment: Anesthesia Plan Discussed and Chart Reviewed Final Anesthetic Review Family History of Problems with Anesthesia: No History of Problems with Anesthesia: No NPO: Yes ASA Class: II and Emergency Final Preanesthetic Review: No Changes in Pt Med Stat, Meds/Allgs Chart Reviewed, Consent Obtained/Reviewed and Anes Risks/Benef Reviewed Patient Risk: Intermediate Procedure Risk: Intermediate Anesthetic Plan Anesthetic Plan: GA Disposition: Standard PACU
--- NOTE | 2021-08-25 08:37 | MHC.SHP ---
Pre-Procedural Eval Section A Date of Service: 08/25/21 The patient is an INPATIENT: Yes Changes since office visit: Yes Patient answered all questions; No Cold of Flu in the past 2 weeks, No New Medical Problems and No Changes in Medication The History & Physical has been completed within 30 days and I have reviewed it.: Yes Section B Chief Complaint: Fall Allergies: Allergies Allergy/AdvReac Type Severity Reaction Status Date / Time lisinopril AdvReac Dizziness Verified 08/24/21 14:05 Plan I have reviewed the history and physical and performed a pertinent physical examination on my patient. No changes have occurred unless specified.
--- NOTE | 2021-08-25 10:28 | PM.OP ---
Brief Operative Note Date of Service: 08/25/21 Pre-op diagnosis: left femur fracture Post-op diagnosis: same Procedure: Retrograde IMN left femur Implants: [place] 200 x 13 with 4 distal and 2 proximal interlocking screws Surgeon: João Wolfe MD Anesthesia: GETA Was an Telephone Coin Box Collector used for this Procedure?: Yes Telephone Coin Box Collector: Aure Shaikh Estimated blood loss (mL): 200 IV fluids (mL): 1,000 Pathology: none sent Condition: stable Disposition: PACU
[2021-08-25] MEDS: fentaNYL citrate/PF 100 MCG/2 ML VIAL 50 MCG IVPUSH ×2 (10:50→10:56)
[2021-08-25] MEDS: oxyCODONE HCl Immed Release 5 MG TABLET PO (10:56)
--- NOTE | 2021-08-25 12:28 | P.PNIM_ITS ---
Subjective Subjective Date of Service: 08/25/21 Interval History: Seen and evaluated this morning Feels comfortable after surgery, having Sherita side of surgery No reported overnight events Review of Systems No fever, chills or weakness No chest pain, palpitation , bilateral lower extremity swelling No shortness of breath or coughing No abdominal pain, nausea or vomiting No urinary symptoms No any rash or wounds Left knee pain in dressing Physical Exam Vital Signs: Vital Signs: Last Vital Signs Temp 98.6 F 08/25/21 11:07 Pulse 63 08/25/21 11:07 Resp 16 08/25/21 11:07 BP 137/61 08/25/21 11:07 Pulse Ox 94 08/25/21 11:07 BMI result Body Mass Index 36.5 Const: Other: Constitutional : Alert, oriented, not in distress Neck : Normal inspection, Supple Cardiovascular : RRR, S1 S2, +2 bilateral lower extremity edema Respiratory : Good bilateral air entry, no crackles, wheezes or rhonchi Gastrointestinal: soft, lax, Normal bowel sounds, Non tender Skin : Warm, Dry, bilateral lower extremity stasis dermatitis picture. Musculoskeletal: Left knee In dressing with no surrounding erythema Neurological : Alert & oriented x3, No focal deficit Objective Data Active Medications Acetaminophen (Acetaminophen 325 Mg Tablet) 650 mg PO Q6H PRN PRN Reason: Pain, Mild (Pain Scale 1-3) Atenolol (Atenolol 100 Mg Tablet) 100 mg PO DAILY [facility]; Protocol Last Admin: 08/25/21 08:09 Dose: 100 mg Documented by: ARVI Enoxaparin Sodium (Enoxaparin Sodium 40 Mg/0.4 Ml Syringe) 40 mg SUBCUT Q24H [facility] Cefazolin Sodium/Dextrose (Ancef) 2 gm in 50 mls @ 100 mls/hr IV ONCE@1450 ONE Stop: 08/25/21 15:19 Lactic Acid (Ammonium Lactate 12 % Lotion 226 Gm Bottle) 1 appl TOPICAL BID [facility]; Protocol Last Admin: 08/25/21 08:10 Dose: Not Given Documented by: RAVI Non-Admin Reason: preop Morphine Sulfate (Morphine Sulfate 4 Mg/Ml Cartridge) 4 mg IVPUSH Q4H PRN; Protocol PRN Reason: Pain, Severe (Pain Scale 7-10) Last Admin: 08/25/21 01:59 Dose: 4 mg Documented by: HO.[email or web address] Ondansetron HCl (Ondansetron Hcl 4 Mg/2 Ml Vial) 4 mg IVPUSH Q8H PRN PRN Reason: Nausea and Vomiting Pharmacy Consult (Consult Rx Perform Med Rec) 1 each MISCELLANE ONCE PRN PRN Reason: Consult order Sodium Chloride (0.9 % Sodium Chloride Flush 3 Ml Syringe) 3 ml IVFLUSH QSHIFT [facility] Last Admin: 08/25/21 08:09 Dose: 3 ml Documented by: RAVI Labs CBC & Chem 7: 08/25/21 05:32 08/25/21 05:32 Labs: Laboratory Results - last 24 hr 08/24/21 08/24/21 08/24/21 14:32 14:32 14:32 MCV 92.6 MCH 32.6 MCHC 35.3 RDW 11.8 Plt Count 255 MPV 8.5 L Immature Gran % (Auto) 0.6 H Neut % (Auto) 70.2 Lymph % (Auto) 16.6 L [place] % (Auto) 10.8 Eos % (Auto) 1.4 Baso % (Auto) 0.4 Lymph # (Auto) 1.2 [place] # (Auto) 0.8 Eos # (Auto) 0.1 Baso # (Auto) 0.0 Abs Immat Gran (auto) 0.04 H Absolute Neuts (auto) 4.9 Absolute Nucleated RBC 0.000 Nucleated RBC % (auto) 0.0 PT 11.7 INR 1.0 Anion Gap 18 Estim Creat Clear Calc 71.9 Estimated GFR > 60 Random Glucose 129 H Calcium 9.5 Magnesium 2.2 Total Bilirubin 1.2 H AST 29 ALT 32 Alkaline Phosphatase 85 B-Natriuretic Peptide Total Protein 7.4 Albumin 4.4 COVID-19 (ELI) COVID-19 Clin Com 08/24/21 08/24/21 08/25/21 14:32 16:02 05:32 MCV 93.0 MCH 32.9 MCHC 35.3 RDW 11.9 Plt Count 227 MPV 9.1 L Immature Gran % (Auto) Neut % (Auto) Lymph % (Auto) [place] % (Auto) Eos % (Auto) Baso % (Auto) Lymph # (Auto) [place] # (Auto) Eos # (Auto) Baso # (Auto) Abs Immat Gran (auto) Absolute Neuts (auto) Absolute Nucleated RBC 0.000 Nucleated RBC % (auto) 0.0 PT INR Anion Gap Estim Creat Clear Calc Estimated GFR Random Glucose Calcium Magnesium Total Bilirubin AST ALT Alkaline Phosphatase B-Natriuretic Peptide 41 Total Protein Albumin COVID-19 (ELI) Negative COVID-19 Clin Com See Note 08/25/21 05:32 MCV MCH MCHC RDW Plt Count MPV Immature Gran % (Auto) Neut % (Auto) Lymph % (Auto) [place] % (Auto) Eos % (Auto) Baso % (Auto) Lymph # (Auto) [place] # (Auto) Eos # (Auto) Baso # (Auto) Abs Immat Gran (auto) Absolute Neuts (auto) Absolute Nucleated RBC Nucleated RBC % (auto) PT INR Anion Gap 12 Estim Creat Clear Calc 82.0 Estimated GFR > 60 Random Glucose 129 H Calcium 8.6 D Magnesium Total Bilirubin AST ALT Alkaline Phosphatase B-Natriuretic Peptide Total Protein Albumin COVID-19 (ELI) COVID-19 Clin Com Assessment and Plan (1) Femoral distal fracture: Status: Acute (2) Acute hyponatremia: Status: Acute (3) Hypokalemia: Status: Acute Plan An 81 years old male with PMH of hypertension who presents to the hospital complaining of left knee pain after sustaining a fall. Femoral distal fracture 2/2 mechanical fall Comminuted with fragments based on x-ray of the knee IV morphine for pain management Pod 0 Orthopedic input appreciated, surgery done To do physical therapy evaluation lower extremity edema ultrasound ruled out DVT Likely stasis dermatitis with fluid overload Consider IV Lasix Consider Corby wrap or compression stocking as outpatient Hyponatremia Na of 132 Secondary to diuresis Monitor BMP Hypokalemia Potassium 3.2 to give replacement and repeat BMP Hypertension Hold amlodipine and chlorthalidone continue atenolol DVT PPX Heparin Quality Stroke Does the patient have a stroke diagnosis?: No VTE Prior VTE?: No VTE Risk Level:: Medical - moderate - high VTE Device Contraindication: Treatment Not Indicated VTE Drug Contraindication: N/A - Med Ordered
[2021-08-25] MEDS: Potassium Chloride Packet 20 MEQ PACKET 40 MEQ PO (12:38)
[2021-08-25] MEDS: ceFAZolin Sodium/Dextrose,Iso 2 GM/50 ML PIGGYBACK IV (13:47)
--- NOTE | 2021-08-25 20:53 | PC.NURSE ---
spence removed,patient tolerated it well,DTV#1 at 0300 ,DIRECTOR OF DIAGNOSTIC IMAGING made aware
[2021-08-25] MEDS: Ammonium Lactate 12 % Lotion 226 GM BOTTLE 1 APPL TOPICAL (21:05)
[2021-08-26] VITALS (9 sets, daily range): BP systolic 128–151; BP diastolic 58–68; PULSE 73–94; RESP 15–20; TEMP 36.8–37.1; O2SAT 91–96
[2021-08-26] MEDS: 0.9 % Sodium Chloride Flush 3 ML SYRINGE IVFLUSH ×3 (00:46→21:49)
[2021-08-26 05:59] LABS: Hematocrit 32.7 % (42.0-52.0); Hemoglobin 11.6 g/dl (14.0-18.0); Mean Corpuscular HGB Conc 35.5 g/dl (31.0-36.0); Mean Corpuscular Hemoglobin 33.2 pg (27.0-33.0); Mean Corpuscular Volume 93.7 fL (80.0-98.0); Mean Platelet Volume 9.2 fL (9.4-12.4); Platelet Count 166 X10*3/uL (160-400); Red Blood Count 3.49 X10*6/uL (4.60-5.80); Red Cell Distribution Width 11.8 % (11.0-16.0); White Blood Count 11.7 X10*3/uL (4.8-10.8)
[2021-08-26 06:23] LABS: Anion Gap 13 (12-20); Blood Urea Nitrogen 16 mg/dL (9-16); Calcium 8.1 mg/dL (8.4-10.2); Carbon Dioxide 27 mmol/L (22-29); Chloride 92 mmol/L (96-108); Creatinine Clr Calc Pharmacy 88.1; Estimated Glomerular Filt Rate > 60; Glucose Random 121 mg/dL (60-115); Potassium 3.5 mmol/L (3.3-5.1); Sodium 128 mmol/L (135-145)
[2021-08-26] MEDS: atenoloL 100 MG TABLET PO (09:01)
[2021-08-26] MEDS: Ammonium Lactate 12 % Lotion 226 GM BOTTLE 1 APPL TOPICAL ×2 (09:02→21:49)
--- NOTE | 2021-08-26 09:34 | HO.POSTANES ---
Post Anesthesia Evaluation Post Anesthesia Evaluation Vital Signs: Vital Signs Temp Pulse Resp BP Pulse Ox 08/26/21 08:23 77 128/58 L 92 08/26/21 07:17 98.3 F 77 17 128/58 L 92 08/26/21 03:31 98.2 F 77 19 133/59 L 95 08/26/21 00:00 98.6 F 73 20 129/60 93 Anesthesia: General LMA Mental Status: Awake Pain Control: Satisfactory Nausea/Vomiting: None Hydration: Adequate Anesthesia-Related Issues: No Anes. Related Issues
--- NOTE | 2021-08-26 09:44 | PM.PNORT ---
Subjective Subjective Date of Service: 08/26/21 Interval history: POD 1 s/p Left distal femur IMN No overnight events worked well with PT, sitting in chair, pain is tolerable when at rest. Physical Exam Vital Signs: Vital Signs: Last Vital Signs Temp 98.3 F 08/26/21 07:17 Pulse 77 08/26/21 08:23 Resp 17 08/26/21 07:17 BP 128/58 L 08/26/21 08:23 Pulse Ox 92 08/26/21 08:23 BMI result Body Mass Index 36.5 Const: General: cooperative, healthy appearing and no acute distress Resp: Effort & Inspection: normal respiratory effort and able to speak in complete sentences Cardio: Rate: regular rate Peripheral pulses: Peripheral pulses 2+ throughout GI: Palpation (GI): Soft to palpation Skin: General skin exam: no rashes or lesions noted Extrem: Other: Left knee bandage intact, NVI. Procedures Date of Service Date of Service: 08/26/21 Progress Note: A&P Assessment and plan (1) Femoral distal fracture: Status: Acute Assessment and Plan: Continue pain mgmnt Begin lovneox for dvt ppx begin PT/OT for LT distal femur retrograde nail-WBAT, ADLS, with walker Dispo planning-Pending PT eval, pain mgmnt Fall Risk Details Current Medications: Current Medications Acetaminophen (Acetaminophen 325 Mg Tablet) 650 mg PO Q6H PRN PRN Reason: Pain, Mild (Pain Scale 1-3) Atenolol (Atenolol 100 Mg Tablet) 100 mg PO DAILY [facility]; Protocol Last Admin: 08/26/21 09:01 Dose: 100 mg Documented by: Enoxaparin Sodium (Enoxaparin Sodium 40 Mg/0.4 Ml Syringe) 40 mg SUBCUT Q24H [facility] Lactic Acid (Ammonium Lactate 12 % Lotion 226 Gm Bottle) 1 appl TOPICAL BID [facility]; Protocol Last Admin: 08/26/21 09:02 Dose: 1 appl Documented by: Morphine Sulfate (Morphine Sulfate 4 Mg/Ml Cartridge) 4 mg IVPUSH Q4H PRN; Protocol PRN Reason: Pain, Severe (Pain Scale 7-10) Last Admin: 08/25/21 21:04 Dose: 4 mg Documented by: Ondansetron HCl (Ondansetron Hcl 4 Mg/2 Ml Vial) 4 mg IVPUSH Q8H PRN PRN Reason: Nausea and Vomiting Pharmacy Consult (Consult Rx Perform Med Rec) 1 each MISCELLANE ONCE PRN PRN Reason: Consult order Sodium Chloride (0.9 % Sodium Chloride Flush 3 Ml Syringe) 3 ml IVFLUSH [facility] Last Admin: 08/26/21 09:02 Dose: 3 ml Documented by: Time Spent With Patient Time: Total time spent is greater than 50% in coordination of care (as documented) at patient's floor/unit and/or counseling patient: Quality Stroke Does the patient have a stroke diagnosis?: No VTE Prior VTE?: No VTE Risk Level:: Medical - moderate - high VTE Device Contraindication: Treatment Not Indicated VTE Drug Contraindication: N/A - Med Ordered
--- NOTE | 2021-08-26 11:48 | P.PNIM_ITS ---
Subjective Subjective Date of Service: 08/26/21 Interval History: Seen and evaluated this morning Feels comfortable As pain is under fair control At physical therapy session and reporting pain upon standing Sodium dropped to 128 No reported overnight events Review of Systems No fever, chills or weakness No chest pain, palpitation , bilateral lower extremity swelling No shortness of breath or coughing No abdominal pain, nausea or vomiting No urinary symptoms No any rash or wounds Left knee in dressing Physical Exam Vital Signs: Vital Signs: Last Vital Signs Temp 98.3 F 08/26/21 07:17 Pulse 77 08/26/21 08:23 Resp 17 08/26/21 07:17 BP 128/58 L 08/26/21 08:23 Pulse Ox 92 08/26/21 08:23 BMI result Body Mass Index 36.5 Const: Other: Constitutional : Alert, oriented, not in distress Neck : Normal inspection, Supple Cardiovascular : RRR, S1 S2, +1 bilateral lower extremity edema Respiratory : Good bilateral air entry, no crackles, wheezes or rhonchi Gastrointestinal: soft, lax, Normal bowel sounds, Non tender Skin : Warm, Dry, bilateral lower extremity stasis dermatitis picture. Musculoskeletal: Left knee In dressing with no surrounding erythema Neurological : Alert & oriented x3, No focal deficit Objective Data Active Medications Acetaminophen (Acetaminophen 325 Mg Tablet) 650 mg PO Q6H PRN PRN Reason: Pain, Mild (Pain Scale 1-3) Atenolol (Atenolol 100 Mg Tablet) 100 mg PO DAILY [facility]; Protocol Last Admin: 08/26/21 09:01 Dose: 100 mg Documented by: ABHIJIT Enoxaparin Sodium (Enoxaparin Sodium 40 Mg/0.4 Ml Syringe) 40 mg SUBCUT Q24H [facility] Lactic Acid (Ammonium Lactate 12 % Lotion 226 Gm Bottle) 1 appl TOPICAL BID [facility]; Protocol Last Admin: 08/26/21 09:02 Dose: 1 appl Documented by: ABHIJIT Morphine Sulfate (Morphine Sulfate 4 Mg/Ml Cartridge) 4 mg IVPUSH Q4H PRN; Protocol PRN Reason: Pain, Severe (Pain Scale 7-10) Last Admin: 08/25/21 21:04 Dose: 4 mg Documented by: ASPEN Ondansetron HCl (Ondansetron Hcl 4 Mg/2 Ml Vial) 4 mg IVPUSH Q8H PRN PRN Reason: Nausea and Vomiting Pharmacy Consult (Consult Rx Perform Med Rec) 1 each MISCELLANE ONCE PRN PRN Reason: Consult order Sodium Chloride (0.9 % Sodium Chloride Flush 3 Ml Syringe) 3 ml IVFLUSH QSHIFT [facility] Last Admin: 08/26/21 09:02 Dose: 3 ml Documented by: ABHIJIT Labs CBC & Chem 7: 08/26/21 05:23 08/26/21 05:23 Labs: Laboratory Results - last 24 hr 08/26/21 08/26/21 08/26/21 05:23 05:23 09:30 MCV 93.7 MCH 33.2 H MCHC 35.5 RDW 11.8 Plt Count 166 D MPV 9.2 L Absolute Nucleated RBC 0.000 Nucleated RBC % (auto) 0.0 Anion Gap 13 Estim Creat Clear Calc 88.1 Estimated GFR > 60 Random Glucose 121 H Calcium 8.1 L Ur Random Sodium 51.0 Assessment and Plan (1) Hypokalemia: Status: Acute (2) Femoral distal fracture: Status: Acute (3) Acute hyponatremia: Status: Acute Plan An 81 years old male with PMH of hypertension who presents to the hospital complaining of left knee pain after sustaining a fall. Femoral distal fracture 2/2 mechanical fall Comminuted with fragments based on x-ray of the knee IV morphine for pain management Pod 1 Orthopedic input appreciated, surgery done physical therapy evaluation lower extremity edema ultrasound ruled out DVT Likely stasis dermatitis with fluid overload hold Lasix Consider Corby wrap or compression stocking as outpatient Hyponatremia Na dropped to 128 Secondary to diuresis check urine sodium and osmolality Water restriction Monitor BMP Hypokalemia Resolved to give replacement and repeat BMP Hypertension Hold amlodipine and chlorthalidone continue atenolol DVT PPX Lovenox Quality Stroke Does the patient have a stroke diagnosis?: No VTE Prior VTE?: No VTE Risk Level:: Medical - moderate - high VTE Device Contraindication: Treatment Not Indicated VTE Drug Contraindication: N/A - Med Ordered
--- NOTE | 2021-08-26 14:05 | MHC.CM.PN ---
PATIENT LIVES WITH HCP/ COPY REQUESTED HE USES A WALKER AND CANE NO VNA SERVICES PER REQUEST, REFERRAL PLACED TO [facility] IS OFFERING A BED AT [place]. HE HAS BEEN COVID VACCINATED AND A BOOSTER ([place] SERIES) BUT UNABLE TO RECALL THE DATES. IF HE DOES OBTAIN HIS CARD, HE WILL NOTIFY CASE MANAGEMENT AND INFORMATION CAN BE ADDED TO EXPANSE PATIENT SEES DEE GUDINO OF [facility]. INFORMATION ADDED TO QUICK TASK CASE MANAGEMENT FOLLOWING
[2021-08-26] MEDS: Albuterol/Iprat 2.5/0.5MG 3 ML AMPUL.NEB INHALE (22:39)
[2021-08-27] MEDS: 0.9 % Sodium Chloride Flush 3 ML SYRINGE IVFLUSH ×3 (00:53→17:04)
[2021-08-27 03:31] VITALS: BP 137/63; PULSE 81; RESP 17; TEMP 36.7; O2SAT 94
[2021-08-27] MEDS: iohexoL 350 MG/ML 100 ML INFUS..BTL 65 ML IV (05:05)
--- NOTE | 2021-08-27 05:29 | PM.EVENT ---
Event Note Date of Service: 08/27/21 Event Note: Acute pulmonary embolism: Patient complained of shortness of breath-noted mkild wheezing; given neb treatment. CT chest with PE protocol showed acute pulmonary emboli within the distal right pulmonary artery extending up to the upper middle and lower lobe pulmonary arteries. There is also straightening of the interventricular septum with increased RV LV ratio indicative of pulmonary hypertension. No evidence of decompensated heart failure. Echocardiogram to check for right heart strain, Troponins, BNP. Venous duplex s/w Lovenox at therapeutic dose. (pt denied any signs of bleeding; ortho team operator specialist communications, mentioned no concern from urgery standpoimnt to start pt on therapeutic anticoagulation) Will also sign-out to day hospitalist for follow-up on the results of the above tests.
[2021-08-27 05:57] LABS: Hematocrit 33.7 % (42.0-52.0); Hemoglobin 11.9 g/dl (14.0-18.0); Mean Corpuscular HGB Conc 35.3 g/dl (31.0-36.0); Mean Corpuscular Hemoglobin 33.1 pg (27.0-33.0); Mean Corpuscular Volume 93.6 fL (80.0-98.0); Mean Platelet Volume 8.6 fL (9.4-12.4); Platelet Count 140 X10*3/uL (160-400); Red Cell Distribution Width 11.9 % (11.0-16.0)
--- NOTE | 2021-08-27 05:57 | PC.NURSE ---
PATIENT TRANSPORTED VIA W/C WITH FLOOR MASSAGE OPERATOR TO HAVE CTA OF THE CHEST DUE TO PREVIOUS SHIFT EPISODE OF SHORTNESS OF BREATH AND WHEEZES WHICH HAVE SINCE RESOLVED, VSS AND PATIENT SHOWS NO S/SX RESP DISTRESS AND DENIES FEELING SOB. CT SCAN REVEALED PULMONARY EMBOLI, HOSPITALIST AND NURSING CEMENT FITTINGS MAKER MADE AWARE, MD CAME TO SPEAK WITH PATIENT AND ORDER FOR LOVENOX NOTED TO BE ENTERED.
[2021-08-27 06:17] LABS: Troponin-I High Sensitivity 3.7 ng/L (<3.5-35.0)
[2021-08-27 06:22] LABS: Anion Gap 12 (12-20); Blood Urea Nitrogen 14 mg/dL (9-16); Calcium 8.5 mg/dL (8.4-10.2); Carbon Dioxide 32 mmol/L (22-29); Chloride 91 mmol/L (96-108); Creatinine Clr Calc Pharmacy 88.1; Estimated Glomerular Filt Rate > 60; Glucose Random 129 mg/dL (60-115); Potassium 4.5 mmol/L (3.3-5.1); Sodium 130 mmol/L (135-145)
[2021-08-27] MEDS: Enoxaparin Sodium 120 MG/0.8 ML SYRINGE 110 MG SUBCUT ×2 (06:37→17:54)
--- NOTE | 2021-08-27 07:15 | CA_ITS ---
Transthoracic Echocardiogram Patient (Last, First, Middle): Rodrigue Abbott, Gender: Male Date of : 1940 Age: 81 Procedure Date: 08/27/2021 Procedure Type: Transthoracic Echocardiogram Location: S3W Height: 172.72 cm Weight: 108.86 kg BSA: 2.21 m2 Heart Rate: bpm BP: 137 / 63 mmHg Museum Librarian: Referring MD: Jc Silveira MD Symptoms: acute PE; ?Rt heart strain Study Quality: Fair ECG Rhythm: Sinus Conclusions: - The left ventricular systolic function is normal. The visually estimated ejection fraction is between 55-60%. - Mild to moderately enlarged right ventricle. - There is normal right ventricular systolic function. - No obvious valvular pathology seen on this study. - The pulmonary artery systolic pressure is normal. Findings Left Ventricle Normal left ventricular cavity size. There is normal left ventricular wall thickness. The left ventricular systolic function is normal. The visually estimated ejection fraction is between 55-60%. There is no evidence of regional wall motion abnormalities. Diastolic function is normal for age. Right Ventricle There is normal right ventricular systolic function. Mild to moderately enlarged right ventricle. Atria Both atria are normal in size. Aortic Valve There is a normal trileaflet aortic valve. There is no aortic valve stenosis. There is no aortic valve regurgitation. Mitral Valve The mitral valve appears normal. There is trace mitral valve regurgitation. There is no mitral valve stenosis. Pulmonic Valve The pulmonic valve was not well visualized. Tricuspid Valve Normal tricuspid valve structure. There is trace tricuspid valve regurgitation. The pulmonary artery systolic pressure is normal. Great Vessels The asc aorta is normal in size. Venous The inferior vena cava is normal in size and collapses greater than 50% with inspiration. Pericardium/Pleural There is no evidence of pericardial effusion. Prior Study Comparison No prior study available for comparison. Recommendations, Care & Conclusions No obvious valvular pathology seen on this study. Measurements 2D Linear Measurements IVSd: 0.98 0.6-0.9/0.6-1.0 cm LVIDd: 4.69 3.9-5.3/4.2-5.9 cm LVIDd Index: 2.12 2.4-3.2/2.2-3.1 cm/m2 LVIDs: 2.70 2.0-3.6 cm LVPWd: 0.99 0.7-1.1 cm LA Diam: 4.30 2.7-3.8/3.0-4.0 cm LAIDs Index: 1.95 1.5-2.3 cm/m2 LV Mass: 199.94 67-162/88-224 g LV Mass Index: 90.47 43-95/49-115 g/m2 LVOT Diam: 2.20 3.0+(-)1.3 cm 2D Systolic Function EF 4C: 53.30 >55% EF 2C: 53.30 >55% EF BiP: 52.20 >55% Mitral Valve MV Pk E: 1.09 MV PK A: 1.01 MV Decel Time: 218.00 E/A: 1.10 E'Lateral: 13.90 E'Medial: 10.70 E/E' Med: 10.20 E/E' Lat: 7.80 PHT: 64.00 MVA PHT: 3.44 Decel Harnett: 4.97 Aortic Valve AoV Pk Isiah: 1.68 AoV Mn Isiah: 1.28 AoV VTI: 0.39 AoV Pk Grad: 11.00 Aov Mn Grad: 7.00 LEANNA Cont.VTI: 2.59 LVOT LVOT Pk Isiah: 1.31 LVOT Mn Isiah: 0.81 LVOT VTI: 0.26 LVOT Pk Grad: 7.00 LVOT Mn Grad: 3.00 LVOT Diam: 2.20 LVOT Area: 3.80 Diastolic Function MV Pk E: 1.09 MV Pk A: 1.01 E/A: 1.10 E'Medial: 10.70 E/E' Med: 10.20 E' Laterial: 13.90 E/E' Lat: 7.80 Right Ventricle TAPSE (mm): 23.40 TVS' Isiah: 14.80 Tricuspid Valve TR Pk Isiah: 1.96 TR Pk Grad: 15.00 RA Press: 3.00 RVSP: 18.00 Great Vessels Aorta Sinus of Valsalva: 3.07 2.0-3.[address] Ridge: 2.44 1.7-3.4 cm Ao Asc: 3.40 2.1-3.4 cm Pulmonary Valve PV Pk Isiah: 1.22 Peak PV Grad: 6.00 Updated in Other Vendor System with Status of Final Vickey Mcnair MD electronically signed on 08/27/2021 4:56:40 PM with status of Final
[2021-08-27 07:21] VITALS: BP 153/70; PULSE 91; RESP 17; TEMP 37.4; O2SAT 92
--- NOTE | 2021-08-27 07:34 | P.PNOP_ITS ---
Subjective Subjective Date of Service: 08/27/21 Interval history: POD 2 s/p left distal femur fracture overnight c/o SOB-CT angio of chest + for PE right side-started on therapeutic lovenox and eliquis states left leg is doing well Physical Exam Vital Signs: Vital Signs: Last Vital Signs Temp 99.4 F 08/27/21 07:21 Pulse 91 08/27/21 07:21 Resp 17 08/27/21 07:21 BP 153/70 H 08/27/21 07:21 Pulse Ox 92 08/27/21 07:21 BMI result Body Mass Index 36.5 Const: General: cooperative, healthy appearing and no acute distress Resp: Effort & Inspection: normal respiratory effort and able to speak in complete sentences Cardio: Rate: regular rate Peripheral pulses: Peripheral pulses 2+ throughout GI: Palpation (GI): Soft to palpation Skin: General skin exam: no rashes or lesions noted Extrem: Other: left leg bandage clean, dry and intact. Moderate swelling , + pulses Procedures Date of Service Date of Service: 08/27/21 Progress Note: A&P Assessment and plan (1) Femoral distal fracture: Status: Acute Assessment and Plan: * Continue pain mgmnt * +PE, therapeutic lovenox with eliquis * PT/OT left femur-wbat * Dispo planning-Pending med clearance Fall Risk Details Current Medications: Current Medications Acetaminophen (Acetaminophen 325 Mg Tablet) 650 mg PO Q6H PRN PRN Reason: Pain, Mild (Pain Scale 1-3) Albuterol/Ipratropium (Albuterol/Iprat 2.5/0.5mg 3 Ml Ampul.Neb) 3 ml INHALE RQ4H PRN PRN Reason: Shortness of Breath/Wheezing Last Admin: 08/26/21 22:39 Dose: 3 ml Documented by: Atenolol (Atenolol 100 Mg Tablet) 100 mg PO DAILY [facility]; Protocol Last Admin: 08/26/21 09:01 Dose: 100 mg Documented by: Enoxaparin Sodium (Enoxaparin Sodium 120 Mg/0.8 Ml Syringe) 110 mg 1 mg/kg (110 mg) SUBCUT Q12H [facility] Last Admin: 08/27/21 06:37 Dose: 110 mg Documented by: Lactic Acid (Ammonium Lactate 12 % Lotion 226 Gm Bottle) 1 appl TOPICAL BID [facility]; Protocol Last Admin: 08/26/21 21:49 Dose: 1 appl Documented by: Morphine Sulfate (Morphine Sulfate 4 Mg/Ml Cartridge) 4 mg IVPUSH Q4H PRN; Protocol PRN Reason: Pain, Severe (Pain Scale 7-10) Last Admin: 08/25/21 21:04 Dose: 4 mg Documented by: Ondansetron HCl (Ondansetron Hcl 4 Mg/2 Ml Vial) 4 mg IVPUSH Q8H PRN PRN Reason: Nausea and Vomiting Pharmacy Consult (Consult Rx Perform Med Rec) 1 each MISCELLANE ONCE PRN PRN Reason: Consult order Sodium Chloride (0.9 % Sodium Chloride Flush 3 Ml Syringe) 3 ml IVFLUSH [facility] Last Admin: 08/27/21 00:53 Dose: 3 ml Documented by: Time Spent With Patient Time: Total time spent is greater than 50% in coordination of care (as documented) at patient's floor/unit and/or counseling patient: Quality Stroke Does the patient have a stroke diagnosis?: No VTE Prior VTE?: No VTE Risk Level:: Medical - moderate - high VTE Device Contraindication: Treatment Not Indicated VTE Drug Contraindication: N/A - Med Ordered
[2021-08-27 07:41] LABS: Osmolality, Serum 266 mosm/kg (281-305)
[2021-08-27 07:43] LABS: Osmolality Urine 324 mosm/kg (373-1093)
--- NOTE | 2021-08-27 08:34 | MHC.CM.PN ---
PATIENT DEVELOPED PE OVERNIGHT. PLAN IS FOR HIM TO REMAIN WITH POTENTIAL DC THIS WEEKEND. [facility] STILL FOLLOWING
[2021-08-27] MEDS: atenoloL 100 MG TABLET PO (09:03)
[2021-08-27] MEDS: Ammonium Lactate 12 % Lotion 226 GM BOTTLE 1 APPL TOPICAL ×2 (09:05→19:38)
[2021-08-27 09:25] LABS: Troponin-I High Sensitivity 4.1 ng/L (<3.5-35.0)
[2021-08-27 10:55] VITALS: BP 167/70; PULSE 73; RESP 17; TEMP 36.8; O2SAT 93
--- NOTE | 2021-08-27 12:12 | P.PNIM_ITS ---
Subjective Subjective Date of Service: 08/27/21 Interval History: Seen and evaluated this morning Developed shortness of breath overnight, found to have new PE Pain is fairly controlled Sodium improved to 130 No reported overnight events Review of Systems No fever, chills or weakness No chest pain, palpitation , bilateral lower extremity swelling Shortness of breath resolved No abdominal pain, nausea or vomiting No urinary symptoms No any rash or wounds Left knee in dressing Physical Exam Vital Signs: Vital Signs: Last Vital Signs Temp 98.2 F 08/27/21 10:55 Pulse 73 08/27/21 10:55 Resp 17 08/27/21 10:55 BP 167/70 H 08/27/21 10:55 Pulse Ox 93 08/27/21 10:55 BMI result Body Mass Index 36.5 Const: Other: Constitutional : Alert, oriented, not in distress Neck : Normal inspection, Supple Cardiovascular : RRR, S1 S2, +1 bilateral lower extremity edema Respiratory : Good bilateral air entry, no crackles, wheezes or rhonchi Gastrointestinal: soft, lax, Normal bowel sounds, Non tender Skin : Warm, Dry, bilateral lower extremity stasis dermatitis picture. Musculoskeletal: Left knee In dressing with no surrounding erythema Neurological : Alert & oriented x3, No focal deficit Objective Data Active Medications Acetaminophen (Acetaminophen 325 Mg Tablet) 650 mg PO Q6H PRN PRN Reason: Pain, Mild (Pain Scale 1-3) Albuterol/Ipratropium (Albuterol/Iprat 2.5/0.5mg 3 Ml Ampul.Neb) 3 ml INHALE RQ4H PRN PRN Reason: Shortness of Breath/Wheezing Last Admin: 08/26/21 22:39 Dose: 3 ml Documented by: SUNIL Atenolol (Atenolol 100 Mg Tablet) 100 mg PO DAILY [facility]; Protocol Last Admin: 08/27/21 09:03 Dose: 100 mg Documented by: TODD Enoxaparin Sodium (Enoxaparin Sodium 120 Mg/0.8 Ml Syringe) 110 mg 1 mg/kg (110 mg) SUBCUT Q12H [facility] Last Admin: 08/27/21 06:37 Dose: 110 mg Documented by: ELOISA Lactic Acid (Ammonium Lactate 12 % Lotion 226 Gm Bottle) 1 appl TOPICAL BID [facility]; Protocol Last Admin: 08/27/21 09:05 Dose: 1 appl Documented by: TODD Morphine Sulfate (Morphine Sulfate 4 Mg/Ml Cartridge) 4 mg IVPUSH Q4H PRN; Protocol PRN Reason: Pain, Severe (Pain Scale 7-10) Last Admin: 08/25/21 21:04 Dose: 4 mg Documented by: ASPEN Ondansetron HCl (Ondansetron Hcl 4 Mg/2 Ml Vial) 4 mg IVPUSH Q8H PRN PRN Reason: Nausea and Vomiting Pharmacy Consult (Consult Rx Perform Med Rec) 1 each MISCELLANE ONCE PRN PRN Reason: Consult order Sodium Chloride (0.9 % Sodium Chloride Flush 3 Ml Syringe) 3 ml IVFLUSH QSHIFT [facility] Last Admin: 08/27/21 09:05 Dose: 3 ml Documented by: TODD Labs CBC & Chem 7: 08/27/21 05:48 08/27/21 05:48 Labs: Laboratory Results - last 24 hr 08/26/21 08/26/21 08/27/21 05:23 09:30 05:48 MCV 93.6 MCH 33.1 H MCHC 35.3 RDW 11.9 Plt Count 140 L MPV 8.6 L Absolute Nucleated RBC 0.000 Nucleated RBC % (auto) 0.0 Anion Gap Estim Creat Clear Calc Estimated GFR Random Glucose Osmolality 266 L Calcium Troponin I High Sens Urine Osmolality 324 L 08/27/21 08/27/21 08/27/21 05:48 05:48 08:32 MCV MCH MCHC RDW Plt Count MPV Absolute Nucleated RBC Nucleated RBC % (auto) Anion Gap 12 Estim Creat Clear Calc 88.1 Estimated GFR > 60 Random Glucose 129 H Osmolality Calcium 8.5 Troponin I High Sens 3.7 4.1 Urine Osmolality Assessment and Plan (1) Hypokalemia: Status: Acute (2) Femoral distal fracture: Status: Acute (3) Acute hyponatremia: Status: Acute (4) Pulmonary embolism: Status: Acute Plan An 81 years old male with PMH of hypertension who presents to the hospital complaining of left knee pain after sustaining a fall. Acute pulmonary embolism Post surgery CTA showing right-sided distal pulmonary artery clot With possible right heart strain patient was on DVT prevention dose of Lovenox Start full-dose Lovenox Pending echo Monitor response overnight and consider outpatient Eliquis for total of 6 months duration Distal femur fracture 2/2 mechanical fall Pod 2 Comminuted with fragments based on x-ray of the knee IV morphine for pain management Orthopedic input appreciated physical therapy evaluation , plan to discharge to are lower extremity edema ultrasound ruled out DVT Likely stasis dermatitis with fluid overload hold Lasix for hyponatremia Consider Corby wrap or compression stocking as outpatient Hyponatremia Improved to 130 Secondary to diuresis low urine sodium and osmolality Water restriction Monitor BMP Hypokalemia Resolved repeat BMP Hypertension restart amlodipine Hold chlorthalidone continue atenolol DVT PPX Lovenox Quality Stroke Does the patient have a stroke diagnosis?: No VTE Prior VTE?: No VTE Risk Level:: Medical - moderate - high VTE Device Contraindication: Treatment Not Indicated VTE Drug Contraindication: N/A - Med Ordered
[2021-08-27] MEDS: amLODIPine Besylate 10 MG TABLET PO (12:47)
[2021-08-27] MEDS: Acetaminophen 325 MG TABLET 650 MG PO ×2 (13:22→19:37)
[2021-08-27 15:44] VITALS: BP 115/59; PULSE 65; RESP 16; TEMP 37.7; O2SAT 94
[2021-08-27 19:41] VITALS: BP 161/69; PULSE 79; RESP 20; TEMP 38.4; O2SAT 95
[2021-08-27 23:40] VITALS: BP 144/65; PULSE 75; RESP 19; TEMP 36.6; O2SAT 94
[2021-08-28] MEDS: 0.9 % Sodium Chloride Flush 3 ML SYRINGE IVFLUSH ×2 (00:25→08:03)
[2021-08-28] MEDS: Acetaminophen 325 MG TABLET 650 MG PO (03:09)
[2021-08-28 03:42] VITALS: BP 140/61; PULSE 77; RESP 18; TEMP 37.1; O2SAT 96
[2021-08-28] MEDS: Enoxaparin Sodium 120 MG/0.8 ML SYRINGE 110 MG SUBCUT (05:57)
[2021-08-28 06:04] LABS: Hematocrit 32.6 % (42.0-52.0); Hemoglobin 11.2 g/dl (14.0-18.0); Mean Corpuscular HGB Conc 34.4 g/dl (31.0-36.0); Mean Corpuscular Hemoglobin 32.3 pg (27.0-33.0); Mean Corpuscular Volume 93.9 fL (80.0-98.0); Mean Platelet Volume 9.1 fL (9.4-12.4); Platelet Count 176 X10*3/uL (160-400); Red Blood Count 3.47 X10*6/uL (4.60-5.80); Red Cell Distribution Width 11.9 % (11.0-16.0); White Blood Count 8.5 X10*3/uL (4.8-10.8)
[2021-08-28 06:22] LABS: Anion Gap 12 (12-20); Blood Urea Nitrogen 13 mg/dL (9-16); Calcium 8.4 mg/dL (8.4-10.2); Carbon Dioxide 28 mmol/L (22-29); Chloride 95 mmol/L (96-108); Creatinine Clr Calc Pharmacy 105.2; Estimated Glomerular Filt Rate > 60; Glucose Random 118 mg/dL (60-115); Potassium 3.4 mmol/L (3.3-5.1); Sodium 132 mmol/L (135-145)
[2021-08-28 07:35] VITALS: BP 150/63; PULSE 82; RESP 18; TEMP 36.8; O2SAT 95
[2021-08-28 08:31] VITALS: BP 150/63; PULSE 82; O2SAT 95
[2021-08-28] MEDS: atenoloL 100 MG TABLET PO (08:52)
[2021-08-28] MEDS: amLODIPine Besylate 10 MG TABLET PO (08:53)
[2021-08-28] MEDS: Ammonium Lactate 12 % Lotion 226 GM BOTTLE 1 APPL TOPICAL (08:57)
[2021-08-28 11:04] VITALS: BP 148/68; PULSE 75; RESP 18; TEMP 36.8; O2SAT 98
--- NOTE | 2021-08-28 11:57 | P.DS_ITS ---
DS: Providers Provider Date of Service: 08/28/21 Date of admission: 08/24/21 15:46 Primary care physician: Yaima Jones NP Consults: 08/24/21 16:02 Consult to Orthopedics Routine Consulting Provider: Aure Shaikh Reason for consultation: Knee # DS: Diagnosis Discharge Diagnosis (1) Hypokalemia: Status: Acute (2) Femoral distal fracture: Status: Acute (3) Acute hyponatremia: Status: Acute (4) Pulmonary embolism: Status: Acute DS: Summary Hospital Course Hospital Course: from initial hpi: Chief Complaint: Fall, knee pain An 81 years old male with PMH of hypertension who presents to the hospital complaining of left knee pain after sustaining a fall.? The patient was at the mall shopping in [place] when he tripped and fell over close track and fell on his left knee with shooting pain started at that moment associated with swelling and obvious deformity as he was unable to put any weight on his knee.? He reports people helped him back to his chair but denies any head injury, lightheadedness, dizziness, chest pain, palpitation, change in bowel habit or urinary symptoms.? He presented by EMS to the emergency where an x-ray was consistent with? Comminuted left distal femoral fracture with approximately 4.4 cm overlapping between the fracture fragments.? The patient will be admitted to the hospital for further evaluation and surgical intervention. hospital course: Patient was admitted for left distal femoral fracture. He underwent left distal femur IMN. And was able to ambulate after. However, patient developed shortness of breath, CTA revealed acute right distal pulmonary artery pulmonary embolism with right heart strain. Patient was started on therapeutic Lovenox, he will be transitioned to Eliquis 10 mg b.i.d. for 7 days and then 5 mg b.i.d.. Patient was not hypoxic, and has since been able to ambulate without shortness of breath. Echocardiogram was done, report is pending and should be followed up. Patient had some hyponatremia with sodium 128, initially his chlorthalidone was held, blood pressures have been elevated and sodium is improved to 132 at discharge side has been restarted. 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 Patient had some hypokalemia that was repleted and resolved. For his hypertension was continue on amlodipine and atenolol, chlorthalidone will be restarted at discharge. He had some lower extremity edema, ultrasound was negative for DVT, his bilateral likely venous stasis, elevation, compression recommended. Patient will be discharged to rehab. Time Spent with Patient Time attestation: Total time spent providing and/or coordinating discharge services: Discharge coordination time: Greater than 30 minutes Quality: Stroke Does the patient have a stroke diagnosis?: No Physical Exam Vital Signs: Vital Signs: Last Vital Signs Temp 98.3 F 08/28/21 11:04 Pulse 75 08/28/21 11:04 Resp 18 08/28/21 11:04 BP 148/68 H 08/28/21 11:04 Pulse Ox 98 08/28/21 11:04 BMI result Body Mass Index 36.5 General: AO X 3, no acute distress Resp: CTA bilateral, no accessory muscles used CVS: S1,S2,RRR, bilateral 2+ edema GI: soft, non tender, non distended Neuro: motor grossly intact, alert Psych: appropriate affect, appropriate insight DS: Data Data Completed and Pending Labs on day of discharge: Laboratory Results - last 24 hr 08/28/21 08/28/21 05:34 05:34 WBC 8.5 RBC 3.47 L Hgb 11.2 L Hct 32.6 L MCV 93.9 MCH 32.3 MCHC 34.4 RDW 11.9 Plt Count 176 D MPV 9.1 L Absolute Nucleated RBC 0.000 Nucleated RBC % (auto) 0.0 Sodium 132 L Potassium 3.4 D Chloride 95 L Carbon Dioxide 28 Anion Gap 12 BUN 13 Creatinine 0.67 Estim Creat Clear Calc 105.2 Estimated GFR > 60 Random Glucose 118 H Calcium 8.4 Discharge Plan Discharge Patient Disposition: Xfer SNF Discharge Diagnosis: pe, femoral fracture Referrals: Yaima Jones NP [Primary Care Provider] - 1 Week Aure Shaikh PA-C [Physician Offset Lithographic Press Setter] - 2 Weeks (ThursdaySeptember 09 @ 2:30 pm ) Discharge Medications: New Eliquis 5 mg tablet 10 mg PO BID Qty: 300 0RF Rx Instructions: 10mg bid for 7 days, then 5mg bid Continued atenolol 100 mg tablet 1 tab PO DAILY 0RF chlorthalidone 25 mg tablet 1 tab PO DAILY 0RF amlodipine 10 mg tablet 1 tab PO DAILY 0RF Discharge Orders: Discharge Order (Routine); Ordered 08/28/21 Ordered By: Dar Woo Diet: advance to usual diet Activity on Discharge: As tolerated Stand Alone Forms: Patient Portal Discharge page Care Plan Goals: recovery Health Concerns: pe, femoral fracture Plan of Treatment: eliquis 20mg bid for 7 days, then decrease to 5mg bid Assessment: see above
--- NOTE | 2021-08-28 13:40 | MHC.CM.PN ---
PLAN IS FOR PATIENT TO TRANSFER TO [facility] TODAY [facility] REQUEST PLACED FOR 1500 TRANSPORTATION. AGENCY INDICATED THAT TIME MAY BE CLOSER TO 1530. PATIENT AND RN MADE AWARE. PATIENT INFORMED IMM 08/27 IN CHART
[2021-08-28 14:49] LABS: COVID-19 Test Negative (Negative)
[2021-08-29 06:01] LABS: NT-proBNP 256 pg/mL
--- NOTE | 2021-10-01 11:41 | W.PM.OPN ---
Operative Note Operative Note Date of Service: 08/25/21 Narrative: Date of Service: 08/25/21 Pre-op diagnosis: left femur fracture Post-op diagnosis: same Procedure: Retrograde IMN left femur Implants: Jones 200 x 13 with 4 distal and 2 proximal interlocking screws Surgeon: João Wolfe MD Anesthesia: GETA Was an Manager Workers Compensation used for this Procedure?: Yes Manager Workers Compensation: Aure Shaikh Estimated blood loss (mL): 200 IV fluids (mL): 1,000 Pathology: none sent Condition: stable Disposition: PACU Procedure in detail: Patient was brought to the operating room and prepped and draped in standard sterile fashion. Time-out was called to identify proper site procedure proper surgeon and IV antibiotics per weight were administered. He was positioned on the radiolucent flatop table and all bony prominences were well padded. I began by making a midline incision over the patellar tendon. The tendon was retrated laterllay and a guide wire was placed in the notch. While using Blumensaat's line on the lateral I inserted the k-wire while my medical assistant secretary held the leg in a reduced position. I then used an opening reamer and selected a 200 mm x 13 nail. The prior hip replacement was measured to be approximately 250 mm from the distal femur. I then placed the retrograde nail and using the attached guide placed 2 oblique and 2 orthogonal screws capturing the large comminuted fracture fragments. Once I was satisfied with the reduction , using perfect tolowa dee-ni' technique I placed 2 static proximal interlocking screws using standard AO technique. I then removed alll extraneous instrumentation. Final biplanar radiographs were taken. I was satisfied with the position of the hardware and the fracture reduction. I think copiously irrigated closed with absorbable sutures marilia and injected 30 mL of into the area of the incisions. Traction was let down patient was placed in sterile dressing awakened from anesthesia brought to recovery room stable condition there were no known complications.
== END 2021-08-28 16:27 | DRG 480 ==
LOC: HO.ED 15:36 → HO.EDOVER 16:14 → HO.S3 17:56
PROVIDERS: Hospitalist; Orthopaedic Surgery; Physician Assistant Medical; Admitting Provider Student in an Organized Health Care Education/Training Program; Emergency Provider Emergency Medicine; PCP Nurse Practitioner Family; Visit Provider Internal Medicine
PROC: 0QSC04Z Reposition Left Lower Femur with Internal Fixation Device, Open Approach (ICD-10-PCS; principal; 2021-08-25 08:00)
DX: S72.402A Unspecified fracture of lower end of left femur, initial encounter for closed fracture (principal); I26.99 Other pulmonary embolism without acute cor pulmonale; E22.2 Syndrome of inappropriate secretion of antidiuretic hormone; W01.0XXA Fall on same level from slipping, tripping and stumbling without subsequent striking against object, initial encounter; T50.2X5A Adverse effect of carbonic-anhydrase inhibitors, benzothiadiazides and other diuretics, initial encounter; Y92.512 Supermarket, store or market as the place of occurrence of the external cause; E87.6 Hypokalemia; Z20.822 Contact with and (suspected) exposure to COVID-19; Z96.643 Presence of artificial hip joint, bilateral; Z96.651 Presence of right artificial knee joint; Z79.899 Other long term (current) drug therapy
CPT/HCPCS: 36415; 71045; 71275; 73560; 80048; 80053; 83735; 83880; 83930; 83935; 84300; 84484; 85025; 85027; 85610; 87635; 93005; 93306; 93970; 94640; 96361; 96374; 96375; 97110; 97116; 97162; 97165; 97535; 99285; 99291; C1713; C1769; J0131; J0690; J1100; J1170; J1650; J1940; J2250; J2270; J2405; J3010; Q9967

== ENCOUNTER 2021-09-09 09:05 | Outpatient (REF) | payer OTHER, MEDICARE, SELFPAY ==
--- NOTE | ~2021-09-09 | XR_ITS ---
EXAMINATION: XR FEMUR, LEFT CLINICAL INFORMATION: Pain COMPARISON: Knee radiographs 08/24/2021 TECHNIQUE: AP and lateral views of the left femur were obtained. XR/XR femur LT 2V FINDINGS/IMPRESSION: Status post intramedullary nail and screw fixation of the comminuted distal femoral fracture. Status post left total hip arthroplasty. No evidence of hardware fracture or complication. No new fracture. No dislocation. Moderate to severe degenerative changes of the knee similar to recent prior. Soft tissue marilia are noted in the medial, lateral and midline soft tissues of the thigh and knee.
== END 2021-09-09 09:06 | disposition home or self-care (01) ==
LOC: HO.HOSX 09:05
PROVIDERS: Visit Provider Physician Assistant
DX: S72.401D Unspecified fracture of lower end of right femur, subsequent encounter for closed fracture with routine healing (principal); X58.XXXD Exposure to other specified factors, subsequent encounter
CPT/HCPCS: 73552; 99212

== ENCOUNTER → 2021-10-07 13:54 | Outpatient (BNVA) | payer MEDICARE, OTHER, SELFPAY | PROVIDERS: PCP Nurse Practitioner Family; Visit Provider Orthopaedic Surgery | DX: S72.491D Other fracture of lower end of right femur, subsequent encounter for closed fracture with routine healing (principal); L03.116 Cellulitis of left lower limb; L03.115 Cellulitis of right lower limb | CPT/HCPCS: 99212 ==

== ENCOUNTER 2022-01-13 08:34 | Outpatient (REF) | payer MEDICARE, OTHER, SELFPAY ==
--- NOTE | ~2022-01-13 | XR_ITS ---
EXAMINATION: LEFT FEMUR AND LEFT KNEE X-RAY CLINICAL INFORMATION: Pain COMPARISON: Previous left femur x-ray August 2021 and left knee x-ray July 2021 TECHNIQUE: 2 views of the left femur and 2 views of the left knee FINDINGS: Left femur: There is a left hip replacement and cerclage wire. There is an intramedullary huey and multiple screws seen in the left mid and distal femur. There is an ununited left distal femoral shaft/osteophyte condyle or fracture. There is increasing bony callus formation seen posteriorly suggestive of evidence of healing. Soft tissues are unremarkable. Left knee: There is an intramedullary huey in the mid and distal shaft of the femur and multiple distal screws transfixing a distal femoral shaft and supracondylar fracture. Orthopedic hardware appears intact and unchanged. Alignment appears unchanged with posterior displacement of the distal knee with respect to the more proximal shaft. Fracture line is still seen. There is increasing bony callus formation suggestive of evidence of healing. There is arthritis at the knee joint. There is osteopenia. There is a large joint effusion. XR/XR knee LT 2V IMPRESSION: Stable appearance of the left hip replacement. Healing displaced left distal femoral shaft/supracondylar fracture. Osteopenia, arthritis at the knee joint and large joint effusion.
--- NOTE | ~2022-01-13 | XR_ITS ---
EXAMINATION: LEFT FEMUR AND LEFT KNEE X-RAY CLINICAL INFORMATION: Pain COMPARISON: Previous left femur x-ray August 2021 and left knee x-ray July 2021 TECHNIQUE: 2 views of the left femur and 2 views of the left knee FINDINGS: Left femur: There is a left hip replacement and cerclage wire. There is an intramedullary huey and multiple screws seen in the left mid and distal femur. There is an ununited left distal femoral shaft/osteophyte condyle or fracture. There is increasing bony callus formation seen posteriorly suggestive of evidence of healing. Soft tissues are unremarkable. Left knee: There is an intramedullary huey in the mid and distal shaft of the femur and multiple distal screws transfixing a distal femoral shaft and supracondylar fracture. Orthopedic hardware appears intact and unchanged. Alignment appears unchanged with posterior displacement of the distal knee with respect to the more proximal shaft. Fracture line is still seen. There is increasing bony callus formation suggestive of evidence of healing. There is arthritis at the knee joint. There is osteopenia. There is a large joint effusion. XR/XR femur LT 2V IMPRESSION: Stable appearance of the left hip replacement. Healing displaced left distal femoral shaft/supracondylar fracture. Osteopenia, arthritis at the knee joint and large joint effusion.
== END 2022-01-13 08:35 | disposition home or self-care (01) ==
LOC: HO.HOSX 08:34
PROVIDERS: Visit Provider Orthopaedic Surgery
DX: S72.402D Unspecified fracture of lower end of left femur, subsequent encounter for closed fracture with routine healing (principal); Z79.899 Other long term (current) drug therapy; Z96.642 Presence of left artificial hip joint
CPT/HCPCS: 73552; 73560; 99212

== ENCOUNTER 2022-10-06 13:06 | Emergency (ER) | payer MEDICARE, OTHER, SELFPAY ==
--- NOTE | 2022-10-06 | ECG_ITS ---
Test Reason : DIZZINESS Blood Pressure : / mmHG Vent. Rate : 072 BPM Atrial Rate : 072 BPM P-R Int : 236 ms QRS Dur : 096 ms QT Int : 412 ms P-R-T Axes : 061 -13 008 degrees QTc Int : 451 ms Sinus rhythm with 1st degree A-V block Otherwise normal ECG When compared with ECG of 24-AUG-2021 15:16, No significant change was found Referred By: Generic ED Physician Electronically Signed By:GORDON MACARIO
--- NOTE | ~2022-10-06 | CT_ITS ---
EXAMINATION: CT HEAD WITHOUT CONTRAST CLINICAL INFORMATION: Dizziness and vomiting COMPARISON: None available. TECHNIQUE: Contiguous axial imaging was performed from the skull base to vertex without intravenous administration of contrast. This CT examination was performed using dose optimization techniques as appropriate, variously including the following: *Automated exposure control *Adjustment of mA and/or kV according to patient size (this includes techniques or standardized protocols for targeted exams where dose is matched to indication/reason for exam; i.e. extremities or head) *Use of iterative reconstruction technique DLP: 814 mGy-cm FINDINGS: No evidence for acute bleed or mass effect. Cisterns unremarkable. Dodson/white matter differentiation is maintained. No distinct extra-axial collections. There is atrophy. Minimal hypodense changes of subcortical white matter are seen likely related to chronic small vessel ischemic disease. There appears to be an old left small lacunar region infarct. The mastoids are well aerated. Skull base unremarkable. Calvarium intact. CT/CT head/brain wo IV con IMPRESSION: No evidence for acute hemorrhage or mass effect. Atrophy with minimal change of chronic small vessel ischemic disease. 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
[2022-10-06 13:19] VITALS: BP 148/72; BP 152/66; PULSE 71; PULSE 76; RESP 16; TEMP 36.5; O2SAT 96; O2SAT 98; BMI 35.4
[2022-10-06 14:46] VITALS: BP 143/71; PULSE 74; RESP 14; TEMP 36.8; O2SAT 95
--- NOTE | 2022-10-06 15:14 | ED.GENADULT ---
HPI - General Adult General Chief complaint: Dizziness Stated complaint: nausea dizziness vomiting per ems Time Seen by Provider: 10/06/22 13:50 Source: patient Mode of arrival: ambulatory Limitations: no limitations History of Present Illness HPI narrative: patient with nausea and vomiting. He has had nausea and vomiting since this morning. No fever. he did describe a headache and dizziness that he describes as lightheaded Onset (ago): hour(s) Related Data Home Medications Medication Instructions Recorded Confirmed amlodipine 10 mg tablet 1 tab PO DAILY 08/24/21 01/13/22 atenolol 100 mg tablet 1 tab PO DAILY 08/24/21 01/13/22 chlorthalidone 25 mg tablet 1 tab PO DAILY swelling 08/24/21 01/13/22 Previous Rx's Medication Instructions Recorded apixaban 5 mg tablet (Eliquis) 10 mg PO BID #300 tabs 08/28/21 Allergies Allergy/AdvReac Type Severity Reaction Status Date / Time lisinopril AdvReac Dizziness Verified 01/13/22 08:39 Review of Systems Review of Systems: Yes all other systems are reviewed and are negative Constitutional: Comments: headache, nausea and vomiting and dizziness Endocrine: Comments: dizziness PMFSH Past Medical History Medical History HTN (hypertension) Surgical History 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 Family History Family History Father Hypertension Social History Social History Household Members: Spouse Housing: House Do you presently have visiting nurse or other home services: No Alcohol intake: current Alcohol intake frequency: 0-2 drinks per day Alcohol type: beer Patient Tobacco Use Status: Never used Tobacco Smoked in Last 30 Days: No Use of substances other than those prescribed or required for medical reasons: No Advance Directives: No Advance Directives Information Provided: Yes service: No Current occupational status: retired Physical Exam ED Vital Signs: Vital Signs - 24 hr 10/06/22 13:19 10/06/22 14:46 Temperature 97.7 F 98.2 F Pulse Rate 71 74 Respiratory Rate 16 14 Blood Pressure 152/66 H 143/71 H Pulse Oximetry 96 95 Oxygen Delivery Method Room Air Room Air BMI result Body Mass Index 35.4 Const General: healthy appearing Nutritional Appearance: average body habitus Orientation/consciousness: oriented to person and patient oriented x3 Limitations: no limitations HENMT Head: Yes normal to inspection Ears: external ears normal General nose exam: Normal external nose present Mouth: Normal oral and palatal mucosa present and oropharynx normal Throat: Yes posterior oropharynx normal Eyes General: appearance normal, both eyes and all related structures Neck Neck: Yes normal visual inspection Chest Chest palpation & inspection: normal inspection of the chest Resp Auscultation: clear to auscultation bilaterally Cardio Jugular venous distension: no JVD Rate: regular rate Rhythm: regular rhythm Heart sounds: S1 normal heart sound present and S2 normal heart sound present GI Inspection: Yes normal to inspection Palpation (GI): Soft to palpation, nontender and No hepatosplenomegaly present Auscultation: normal bowel sounds General: Yes no CVA tenderness Back/Spine/Pelvis Back: no CVA tenderness Skin General skin exam: no rashes or lesions noted Neuro General: oriented to person and patient oriented x3 Cranial nerves: Yes CN's II-XII intact bilaterally Motor exam (neuro): 5/5 motor strength present throughout Extrem General: Yes normal to inspection Psych Appearance: grossly normal Medications Administered Discontinued Medications Generic Name Dose Route Start Last Admin Trade Name Freq PRN Reason Stop Dose Admin Sodium Chloride 500 mls @ 500 mls/hr 10/06/22 15:30 10/06/22 15:46 Ns IV 10/06/22 16:29 500 mls/hr .Q1H PRANAV Administration Ondansetron HCl 4 mg 10/06/22 15:16 10/06/22 15:46 Ondansetron Hcl 4 Mg/2 Ml Vial IVPUSH 10/06/22 15:17 4 mg ONCE ONE Administration Medical Decision Making Differential Diagnosis Differential Diagnoses: The differential diagnosis associated with the presentation includes (headache, nausea and vomiting, brain tumor, vertigo, subdural, cerebral bleed) Admission/Observation Consideration of admission/observation: Escalation of care including admission/observation considered (82 yo male with headache and nausea and vomiting was considered for admission) Lab Data MDM Lab Attestation statement: I reviewed the patient's lab results. 10/06/22 15:36 05/08/23 15:36 Labs: Lab Results 10/06/22 10/06/22 10/06/22 Range/Units 15:36 15:36 15:36 WBC 9.6 (4.8-10.8) X10*3/uL RBC 5.21 D (4.60-5.80) X10*6/uL Hgb 16.8 D (14.0-18.0) g/dl Hct 48.6 D (42.0-52.0) % MCV 93.3 (80.0-98.0) fL MCH 32.2 (27.0-33.0) pg MCHC 34.6 (31.0-36.0) g/dl RDW 11.6 (11.0-16.0) % Plt Count 258 D (160-400) X10*3/uL MPV 8.4 L (9.4-12.4) fL Immature Gran % (Auto) 0.7 H (0.0-0.4) % Neut % (Auto) 86.8 H (45-73) % Lymph % (Auto) 8.1 L (20-40) % Grayson % (Auto) 3.9 (2-11) % Eos % (Auto) 0.1 (0-4) % Baso % (Auto) 0.4 (0-2) % Lymph # (Auto) 0.8 L (1.2-4.9) X10*3/uL Grayson # (Auto) 0.4 (0.1-1.2) X10*3/uL Eos # (Auto) 0.0 (0.0-0.4) X10*3/uL Baso # (Auto) 0.0 (0.0-0.2) X10*3/uL Abs Immat Gran (auto) 0.07 H (0.00-0.03) X10*3/uL Absolute Neuts (auto) 8.3 (2.0-8.3) x10*3/uL Absolute Nucleated RBC 0.000 (0.0-0.012) X10*3/uL Nucleated RBC % (auto) 0.0 (0.0-0.2) /100WBC Sodium 133 L (135-145) mmol/L Potassium 4.2 D (3.3-5.1) mmol/L Chloride 98 (96-108) mmol/L Carbon Dioxide 25 (22-29) mmol/L Anion Gap 14 (12-20) BUN 11 (9-16) mg/dL Creatinine 0.84 (0.5-1.4) mg/dL Estim Creat Clear Calc 83.7 Estimated GFR > 60 Random Glucose 128 H (60-115) mg/dL Calcium 9.3 D (8.4-10.2) mg/dL Total Bilirubin 0.8 (0.0-1.0) mg/dL Direct Bilirubin 0.3 (0.0-0.5) mg/dL AST 24 (5-37) U/L ALT 26 (0-40) U/L Alkaline Phosphatase 92 (39-117) U/L Total Protein 7.3 (6.5-8.0) g/dL Albumin 4.4 (3.5-5.0) g/dL Urine Color Urine Appearance Urine pH (5.0-9.0) Ur Specific [place]mboden (1.005-1.025) Urine Protein (Neg-Trace) mg/dL Urine Glucose (UA) (Negative) mg/dL Urine Ketones (Negative) mg/dL Urine Blood (Negative) Urine Nitrite (Negative) Ur Leukocyte Esterase (Negative) Ethyl Alcohol < 10 mg/dL 10/06/22 Range/Units 15:50 WBC (4.8-10.8) X10*3/uL RBC (4.60-5.80) X10*6/uL Hgb (14.0-18.0) g/dl Hct (42.0-52.0) % MCV (80.0-98.0) fL MCH (27.0-33.0) pg MCHC (31.0-36.0) g/dl RDW (11.0-16.0) % Plt Count (160-400) X10*3/uL MPV (9.4-12.4) fL Immature Gran % (Auto) (0.0-0.4) % Neut % (Auto) (45-73) % Lymph % (Auto) (20-40) % Grayson % (Auto) (2-11) % Eos % (Auto) (0-4) % Baso % (Auto) (0-2) % Lymph # (Auto) (1.2-4.9) X10*3/uL Grayson # (Auto) (0.1-1.2) X10*3/uL Eos # (Auto) (0.0-0.4) X10*3/uL Baso # (Auto) (0.0-0.2) X10*3/uL Abs Immat Gran (auto) (0.00-0.03) X10*3/uL Absolute Neuts (auto) (2.0-8.3) x10*3/uL Absolute Nucleated RBC (0.0-0.012) X10*3/uL Nucleated RBC % (auto) (0.0-0.2) /100WBC Sodium (135-145) mmol/L Potassium (3.3-5.1) mmol/L Chloride (96-108) mmol/L Carbon Dioxide (22-29) mmol/L Anion Gap (12-20) BUN (9-16) mg/dL Creatinine (0.5-1.4) mg/dL Estim Creat Clear Calc Estimated GFR Random Glucose (60-115) mg/dL Calcium (8.4-10.2) mg/dL Total Bilirubin (0.0-1.0) mg/dL Direct Bilirubin (0.0-0.5) mg/dL AST (5-37) U/L ALT (0-40) U/L Alkaline Phosphatase (39-117) U/L Total Protein (6.5-8.0) g/dL Albumin (3.5-5.0) g/dL Urine Color Yellow Urine Appearance Clear Urine pH 7.5 (5.0-9.0) Ur Specific [place] 1.010 (1.005-1.025) Urine Protein Negative (Neg-Trace) mg/dL Urine Glucose (UA) Negative (Negative) mg/dL Urine Ketones Negative (Negative) mg/dL Urine Blood Negative (Negative) Urine Nitrite Negative (Negative) Ur Leukocyte Esterase Negative (Negative) Ethyl Alcohol mg/dL Independent Interpretation I performed an independent interpretation of an: CT Scan (question of fluid in posterior at the cerebellum) Independent Historian Clinical information obtained from an independent historian. History obtained from or confirmed by: Spouse Discharge Plan Discharge Clinical Impression: Headache Patient Disposition: Still a Patient Prescriptions: No Action atenolol 100 mg tablet 1 tab PO DAILY chlorthalidone 25 mg tablet 1 tab PO DAILY amlodipine 10 mg tablet 1 tab PO DAILY Eliquis 5 mg tablet 10 mg PO BID Qty: 300 0RF Rx Instructions: 10mg bid for 7 days, then 5mg bid
[2022-10-06 15:45] LABS: MANUAL DIFF FLAG NO
[2022-10-06] MEDS: 0.9 % Sodium Chloride 500 ML IV (15:46)
[2022-10-06] MEDS: ondansetron HCL 4 MG/2 ML VIAL IVPUSH (15:46)
[2022-10-06 15:47] LABS: Basophils Percent Auto 0.4 % (0-2); Eosinophils Percent Auto 0.1 % (0-4); Hematocrit 48.6 % (42.0-52.0); Hemoglobin 16.8 g/dl (14.0-18.0); Imm Gran Abs Auto 0.07 X10*3/uL (0.00-0.03); Imm Gran Pct Auto 0.7 % (0.0-0.4); Lymphocytes Absolute Auto 0.8 X10*3/uL (1.2-4.9); Lymphocytes Percent Auto 8.1 % (20-40); Mean Corpuscular HGB Conc 34.6 g/dl (31.0-36.0); Mean Corpuscular Hemoglobin 32.2 pg (27.0-33.0); Mean Corpuscular Volume 93.3 fL (80.0-98.0); Mean Platelet Volume 8.4 fL (9.4-12.4); Monocytes Absolute Auto 0.4 X10*3/uL (0.1-1.2); Monocytes Percent Auto 3.9 % (2-11); Neutrophils Absolute Auto 8.3 x10*3/uL (2.0-8.3); Neutrophils Percent Auto 86.8 % (45-73); Platelet Count 258 X10*3/uL (160-400); Red Blood Count 5.21 X10*6/uL (4.60-5.80); Red Cell Distribution Width 11.6 % (11.0-16.0); White Blood Count 9.6 X10*3/uL (4.8-10.8)
[2022-10-06 16:00] LABS: Ethanol < 10 mg/dL
[2022-10-06 16:02] LABS: Alanine Aminotransferase 26 U/L (0-40); Albumin Level 4.4 g/dL (3.5-5.0); Alkaline Phosphatase 92 U/L (39-117); Anion Gap 14 (12-20); Aspartate Amino Transferase 24 U/L (5-37); Bilirubin Direct 0.3 mg/dL (0.0-0.5); Bilirubin Total 0.8 mg/dL (0.0-1.0); Blood Urea Nitrogen 11 mg/dL (9-16); Calcium 9.3 mg/dL (8.4-10.2); Carbon Dioxide 25 mmol/L (22-29); Chloride 98 mmol/L (96-108); Creatinine Clr Calc Pharmacy 83.7; Estimated Glomerular Filt Rate > 60; Glucose Random 128 mg/dL (60-115); Potassium 4.2 mmol/L (3.3-5.1); Sodium 133 mmol/L (135-145); Total Protein 7.3 g/dL (6.5-8.0)
[2022-10-06 16:02] LABS: Appearance Urine Clear; Color Urine Yellow; Glucose Urine UA Negative (Negative); Leukocyte Esterase Urine Negative (Negative); Nitrite Urine Negative (Negative); PH 7.5 (5.0-9.0); Urine Blood Negative (Negative); Urine Ketones Negative (Negative); Urine Protein Negative (Neg-Trace)
[2022-10-06 16:51] VITALS: BP 159/78; PULSE 85; RESP 18; TEMP 36.4; O2SAT 97
== END 2022-10-06 17:36 | disposition home or self-care (01) ==
PROVIDERS: Emergency Provider Emergency Medicine; PCP Nurse Practitioner Family
DX: R42 Dizziness and giddiness (principal); R11.10 Vomiting, unspecified; R51.9 Headache, unspecified; R94.31 Abnormal electrocardiogram [ECG] [EKG]; Z79.899 Other long term (current) drug therapy
CPT/HCPCS: 36415; 70450; 80048; 80076; 80307; 81003; 85025; 93005; 96361; 96374; 99285; J2405

== ENCOUNTER 2024-03-26 10:57 | Emergency (ER) | payer MEDICARE, OTHER, SELFPAY ==
--- NOTE | ~2024-03-26 | CT_ITS ---
EXAMINATION: CT ABDOMEN AND PELVIS WITH CONTRAST CLINICAL INFORMATION: rectal leaking, eval for abscess. COMPARISON: None available. TECHNIQUE: Multidetector volumetric imaging was performed from the lung bases through the pubic symphysis following the administration of: Oral contrast: None Intravenous contrast: 85 mL Omnipaque 350 No contrast reaction reported Sagittal and coronal reformatted images were obtained on the technologist's workstation. This CT examination was performed using dose optimization techniques as appropriate, variously including the following: *Automated exposure control *Adjustment of mA and/or kV according to patient size (this includes techniques or standardized protocols for targeted exams where dose is matched to indication/reason for exam; i.e. extremities or head) *Use of iterative reconstruction technique Total exam dose-length product 1144 mGy-cm. FINDINGS: LUNG BASES: Moderate to extensive coronary calcifications are noted. No pleural or pericardial effusions. Mild bronchiectatic changes at the lung bases with mild dependent atelectasis. LIVER, GALLBLADDER, AND BILIARY TREE: The liver is normal in size and contour. There is diffuse low-attenuation of the liver parenchyma consistent with hepatic steatosis. No focal liver lesion is seen. No biliary ductal dilatation. The gallbladder is moderately contracted however there is no evidence of radiopaque calculi, wall thickening or pericholecystic inflammatory changes. No radiopaque calculi are noted in the course of the common bile duct. PANCREAS: Normal; no mass or surrounding fluid. SPLEEN: Normal size. No focal lesion. ADRENAL GLANDS: Normal; no mass. KIDNEYS AND URETERS: The kidneys are normal in size, shape and attenuation. No radiopaque renal calculi or hydronephrosis. Bilateral mildly prominent though pelvises are noted. There is a 6.3 cm hypodense lesion in the upper pole of the left kidney representing a cyst by CT Hounsfield units criteria and no further imaging follow-up of this finding is warranted. A 1.2 cm hypodense lesion in the mid left kidney posterolaterally also represents a cyst and no further imaging follow-up of this finding is warranted. A subcentimeter low-attenuation in the mid right kidney anteromedially status post characterize accurately however statistically likely represents a cyst and no further imaging follow-up of this finding is warranted. GASTROINTESTINAL TRACT: The stomach is largely decompressed. No abnormal small bowel dilatation. Colon is normal in caliber. The rectosigmoid colon is decompressed. No evidence of colonic wall thickening or pericolic fat stranding. Moderate stool burden in the colon. An appendix is normal. PERITONEAL CAVITY: No evidence of free intraperitoneal air or fluid. ABDOMINAL WALL: Bilateral fat-containing inguinal hernias. LYMPHOVASCULAR STRUCTURES: No evidence of pathologically enlarged lymph nodes. Bilateral small inguinal lymph nodes are noted with borderline left inguinal lymph node measuring 1 cm in short axis. Aortoiliac vessels are normal in caliber. Mild to moderate scattered calcific atherosclerosis of the aortoiliac vessels. BLADDER: Evaluation is limited due to streaking artifacts from bilateral total hip arthroplasty hardware. The bladder is mildly distended and grossly unremarkable without evidence of radiopaque calculi are asymmetrical wall thickening. PELVIC VISCERA: The prostate is mildly enlarged measuring 5.4 cm in transverse dimension. Coarse prostatic calcifications are noted. Normal seminal vesicles. Bilateral small hydroceles, left greater than right. OSSEOUS STRUCTURES: Diffuse osteopenia. Mild grade 1 anterolisthesis of L4 over L5 is noted. Diffuse spondylosis in the visualized spine. Severe bilateral neural foraminal stenosis is noted at the L5-S1. Bilateral total arthroplasty hardware is intact without evidence of from hardware loosening. One of the left acetabular fixation screw, likely slightly extends beyond the osseous margin medially. CT/CT abdomen pelvis w IV con IMPRESSION: 1. No evidence of acute abnormality in the abdomen and pelvis. Evaluation of the rectosigmoid colon is somewhat limited due to underdistention however no definite wall thickening or tyrone for fat stranding is suspected. No evidence of abscess formation. 2. Hepatic steatosis. 3. Mild prostatomegaly. 4. Moderate to extensive coronary calcifications. 5. Bilateral small hydroceles. Electronically signed by: Mickie Villa MD 03/26/2024 02:56 PM EDT
[2024-03-26 11:17] VITALS: BP 146/64; PULSE 72; RESP 18; TEMP 36.6; O2SAT 95; BMI 36.8
--- NOTE | 2024-03-26 11:20 | ED_ITS ---
HPI - General Adult General Chief complaint: General Medical Stated complaint: rectal leakage Time Seen by Provider: 03/26/24 12:01 Source: patient and family Mode of arrival: ambulatory Limitations: no limitations History of Present Illness ED Provider: Saadia Farrell APRN HPI narrative: 83-year-old male with a history of hypertension, PE on Eliquis here with complaints of rectal leaking for the last 48 hours. Patient reports purulent drainage from his rectum for the last 2 days with no reports of pain. He does report some skin irritation around his anus. He denies any abdominal pain, diarrhea, constipation, vomiting, fevers. He reports normal formed stools. Related Data Home Medications ?Medication ?Instructions ?Recorded ?Confirmed amlodipine 10 mg tablet 1 tab PO DAILY 08/24/21 01/13/22 atenolol 100 mg tablet 1 tab PO DAILY 08/24/21 01/13/22 chlorthalidone 25 mg tablet 1 tab PO DAILY swelling 08/24/21 01/13/22 Previous Rx's ?Medication ?Instructions ?Recorded apixaban 5 mg tablet (Eliquis) 10 mg (2 x 5 mg) PO BID #300 tabs 08/28/21 naproxen 500 mg tablet (Naprosyn) 500 mg PO BID #20 tabs 10/06/22 ondansetron 4 mg disintegrating 4 mg PO Q8H 4 days #12 tabs 10/06/22 tablet Allergies Allergy/AdvReac Type Severity Reaction Status Date / Time lisinopril AdvReac Dizziness Verified 03/26/24 11:20 Review of Systems 2 Review of Systems: Yes all other systems are reviewed and are negative Constitutional: Constitutional: Reports no additional constitutional complaints, Denies body ache(s), Denies chills, Denies fever(s), Denies headache(s) and Denies weakness Eyes: Eyes: Reports no additional eye complaints and Denies change in vision ENT: Reports system reviewed and no additional complaints, except as documented, Denies dizziness, Denies headache(s), Denies nasal congestion, Denies nasal discharge and Denies neck pain Cardiovascular: Cardiovascular: Reports no additional cardiovascular complaints, Denies chest pain, Denies leg edema and Denies dyspnea Respiratory: Respiratory: Reports no additional respiratory complaints, Denies cough and Denies dyspnea Gastrointestinal: Gastrointestinal: Reports no additional gastrointestinal complaints, Denies abdominal pain, Denies hematochezia, Denies constipation, Denies diarrhea, Denies nausea and Denies vomiting Genitourinary: Genitourinary: Denies urinary incontinence Musculoskeletal: Musculoskeletal: Reports no additional musculoskeletal complaints, Denies back pain, Denies arthralgias, Denies joint swelling, Denies neck pain, Denies numbness and Denies tingling Integumentary/Breasts: Skin/Breast: Reports system reviewed and no additional complaints, except as docu and Denies rash Neurologic: Reports system reviewed and no additional complaints, except as documented, Denies Abnormal speech present, Denies dizziness, Denies headache(s), Denies numbness, Denies tingling and Denies weakness PMFSH Past Medical History Attestation statement: The following information was validated with the patient. Source: old records reviewed and nursing notes reviewed Medical History HTN (hypertension) Surgical History 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 Family History Family History Father Hypertension Social History Social History Household Members: Spouse Housing: House Do you presently have visiting nurse or other home services: No Alcohol intake: current Alcohol intake frequency: 0-2 drinks per day Alcohol type: beer and wine Patient Tobacco Use Status: Never used Tobacco Use of substances other than those prescribed or required for medical reasons: No Advance Directives: No Advance Directives Information Provided: No Do you have a plan to hurt others: No Plan service: No Current occupational status: retired Physical Exam ED Vital Signs: Vital Signs - 24 hr 03/26/24 11:17 03/26/24 12:30 03/26/24 14:40 Temperature 98 F 98.8 F 97.1 F Pulse Rate 72 70 76 Respiratory Rate 18 18 18 Blood Pressure 146/64 H 152/68 H 146/72 H Pulse Oximetry 95 96 96 Oxygen Delivery Method Room Air Room Air Room Air BMI result Body Mass Index 36.8 Const General: cooperative, healthy appearing, comfortable and no acute distress Orientation/consciousness: patient oriented x3 Limitations: no limitations HENMT Head: Yes normal to inspection Ears: hearing grossly normal bilaterally General nose exam: Normal external nose present Face and sinus: Yes normal facial exam Mouth: Normal oral and palatal mucosa present Throat: Yes posterior oropharynx normal Eyes General: appearance normal, both eyes and all related structures Pupils: Equal, round and reactive pupils present Neck Neck: Yes normal visual inspection Chest Chest palpation & inspection: normal inspection of the chest Resp Effort & Inspection: normal respiratory effort Auscultation: clear to auscultation bilaterally Cardio Rate: regular rate Rhythm: regular rhythm Peripheral pulses: Peripheral pulses 2+ throughout GI Inspection: Yes normal to inspection Palpation (GI): Soft to palpation and nontender Auscultation: normal bowel sounds Rectal Exam - Male: Yes normal sphincter tone and Yes Excoriation present (GI) Back/Spine/Pelvis Thoracic/Lumbar Spine: thoracic and lumbar spine normal to inspection Skin General skin exam: no rashes or lesions noted Neuro General: patient oriented x3, no focal motor deficits and normal sensation to monofilament Cranial nerves: Yes Equal, round and reactive pupils present Cognition (Neuro): normal cognition Speech: No Abnormal speech present Gait exam (Neuro): Normal gait present Motor exam (neuro): 5/5 motor strength present throughout Extrem General: Yes normal to inspection Course Course Course Narrative: This is a Rapid Medical Examination (RME) performed by Harmeet Bonilla PA-C in triage. Full HPI, ROS, assessment and treatment plan per primary provider in the Main ED. 83 yo male hx of HTN and PE on Eliquis here for eval of clear drainage from rectum since yesterday. passing BM normally. no hx similar. reports blood streak this morning when wiping. no known wound/ abscess. +area not examined in triage Plan: basic labs Reevaluation(s) Reevaluation #1: CT is unremarkable. Labs are unremarkable. Patient does have quite a bit of excoriation and skin breakdown on the bottom so we discussed using barrier methods and hygiene at home. Recommend they follow-up with PCP and Gastroenterology for any continued symptoms. Reviewed worrisome signs and symptoms of when to return to the emergency room. Comfortable plan for discharge home. Medications Administered Discontinued Medications Generic Name Dose Route Start Last Admin Trade Name Freq PRN Reason Stop Dose Admin Iohexol 100 ml 03/26/24 13:50 03/26/24 13:51 Iohexol 350 Mg/Ml 100 Ml Infus..Btl IV 03/26/24 13:51 85 ml ONCE ONE Administration Medical Decision Making Medical Decision Making [facility] [place] Narrative: 83-year-old male with a history of hypertension, PE on Eliquis here with complaints of rectal leaking for the last 48 hours. Patient reports purulent drainage from his rectum for the last 2 days with no reports of pain. He does report some skin irritation around his anus. He denies any abdominal pain, diarrhea, constipation, vomiting, fevers. He reports normal formed stools. Will obtain labs, CT pelvis with contrast Differential Diagnosis Differential Diagnoses: The differential diagnosis associated with the presentation includes perirectal abscess Admission/Observation Consideration of admission/observation: Escalation of care including admission/observation considered Lab Data [facility] [place] Lab Attestation statement: I reviewed the patient's lab results. 03/26/24 11:34 03/26/24 11:34 Labs: Lab Results 03/26/24 Range/Units 11:34 WBC 10.4 (4.8-10.8) X10*3/uL RBC 4.88 (4.60-5.80) X10*6/uL Hgb 16.0 (14.0-18.0) g/dl Hct 46.1 (42.0-52.0) % MCV 94.5 (80.0-98.0) fL MCH 32.8 (27.0-33.0) pg MCHC 34.7 (31.0-36.0) g/dl RDW 12.3 (11.0-16.0) % Plt Count 281 (160-400) X10*3/uL MPV 8.6 L (9.4-12.4) fL Immature Gran % (Auto) 0.6 H (0.0-0.4) % Neut % (Auto) 77.8 H (45-73) % Lymph % (Auto) 10.9 L (20-40) % [place] % (Auto) 7.4 (2-11) % Eos % (Auto) 2.6 (0-4) % Baso % (Auto) 0.7 (0-2) % Lymph # (Auto) 1.1 L (1.2-4.9) X10*3/uL [place] # (Auto) 0.8 (0.1-1.2) X10*3/uL Eos # (Auto) 0.3 (0.0-0.4) X10*3/uL Baso # (Auto) 0.1 (0.0-0.2) X10*3/uL Abs Immat Gran (auto) 0.06 H (0.00-0.03) X10*3/uL Absolute Neuts (auto) 8.1 (2.0-8.3) x10*3/uL Absolute Nucleated RBC 0.000 (0.0-0.012) X10*3/uL Nucleated RBC % (auto) 0.0 (0.0-0.2) /100WBC Sodium 135 (135-145) mmol/L Potassium 4.3 (3.3-5.1) mmol/L Chloride 102 (96-108) mmol/L Carbon Dioxide 24 (22-29) mmol/L Anion Gap 13 (12-20) BUN 15 (9-16) mg/dL Creatinine 0.85 (0.5-1.4) mg/dL Estim Creat Clear Calc 77.9 Estimated GFR > 60 Random Glucose 125 H (60-115) mg/dL Calcium 9.6 (8.4-10.2) mg/dL Total Bilirubin 0.8 (0.0-1.0) mg/dL AST 26 (5-37) U/L ALT 26 (0-40) U/L Alkaline Phosphatase 89 (39-117) U/L Total Protein 7.3 (6.5-8.0) g/dL Albumin 4.2 (3.5-5.0) g/dL Independent Interpretation I performed an independent interpretation of an: CT Scan Interpretation: I independently reviewed the CT scan and agree with rad report Radiology Impression Discussion of test interpretation with radiology: I have reviewed the radiologist's reading. Radiologist Impression: FINDINGS: LUNG BASES: Moderate to extensive coronary calcifications are noted. No pleural or pericardial effusions. Mild bronchiectatic changes at the lung bases with mild dependent atelectasis. LIVER, GALLBLADDER, AND BILIARY TREE: The liver is normal in size and contour. There is diffuse low-attenuation of the liver parenchyma consistent with hepatic steatosis. No focal liver lesion is seen. No biliary ductal dilatation. The gallbladder is moderately contracted however there is no evidence of radiopaque calculi, wall thickening or pericholecystic inflammatory changes. No radiopaque calculi are noted in the course of the common bile duct. PANCREAS: Normal; no mass or surrounding fluid. SPLEEN: Normal size. No focal lesion. ADRENAL GLANDS: Normal; no mass. KIDNEYS AND URETERS: The kidneys are normal in size, shape and attenuation. No radiopaque renal calculi or hydronephrosis. Bilateral mildly prominent though pelvises are noted. There is a 6.3 cm hypodense lesion in the upper pole of the left kidney representing a cyst by CT Hounsfield units criteria and no further imaging follow-up of this finding is warranted. A 1.2 cm hypodense lesion in the mid left kidney posterolaterally also represents a cyst and no further imaging follow-up of this finding is warranted. A subcentimeter low-attenuation in the mid right kidney anteromedially status post characterize accurately however statistically likely represents a cyst and no further imaging follow-up of this finding is warranted. GASTROINTESTINAL TRACT: The stomach is largely decompressed. No abnormal small bowel dilatation. Colon is normal in caliber. The rectosigmoid colon is decompressed. No evidence of colonic wall thickening or pericolic fat stranding. Moderate stool burden in the colon. An appendix is normal. PERITONEAL CAVITY: No evidence of free intraperitoneal air or fluid. ABDOMINAL WALL: Bilateral fat-containing inguinal hernias. LYMPHOVASCULAR STRUCTURES: No evidence of pathologically enlarged lymph nodes. Bilateral small inguinal lymph nodes are noted with borderline left inguinal lymph node measuring 1 cm in short axis. Aortoiliac vessels are normal in caliber. Mild to moderate scattered calcific atherosclerosis of the aortoiliac vessels. BLADDER: Evaluation is limited due to streaking artifacts from bilateral total hip arthroplasty hardware. The bladder is mildly distended and grossly unremarkable without evidence of radiopaque calculi are asymmetrical wall thickening. PELVIC VISCERA: The prostate is mildly enlarged measuring 5.4 cm in transverse dimension. Coarse prostatic calcifications are noted. Normal seminal vesicles. Bilateral small hydroceles, left greater than right. OSSEOUS STRUCTURES: Diffuse osteopenia. Mild grade 1 anterolisthesis of L4 over L5 is noted. Diffuse spondylosis in the visualized spine. Severe bilateral neural foraminal stenosis is noted at the L5-S1. Bilateral total arthroplasty hardware is intact without evidence of from hardware loosening. One of the left acetabular fixation screw, likely slightly extends beyond the osseous margin medially. CT/CT abdomen pelvis w IV con IMPRESSION: 1. No evidence of acute abnormality in the abdomen and pelvis. Evaluation of the rectosigmoid colon is somewhat limited due to underdistention however no definite wall thickening or tyrone for fat stranding is suspected. No evidence of abscess formation. 2. Hepatic steatosis. 3. Mild prostatomegaly. 4. Moderate to extensive coronary calcifications. 5. Bilateral small hydroceles. Independent Historian Clinical information obtained from an independent historian. History obtained from or confirmed by: Spouse Discharge Plan Discharge Clinical Impression: Rectal leakage Patient Disposition: Home, Self-Care Instructions: Rectal Pain (ED) Additional Instructions: Your CT scan is normal You may need to follow-up for a colonoscopy if symptoms continue. I have attached a number for a drapery hand Also follow-up with your PCP Keep your skin clean and dry. Apply a barrier cream. Splash with water to clean or gently pat with wipes then pat dry. Avoid rubbing. Return for worsening symptoms Prescriptions: No Action atenolol 100 mg tablet 1 tab PO DAILY chlorthalidone 25 mg tablet 1 tab PO DAILY amlodipine 10 mg tablet 1 tab PO DAILY Eliquis 5 mg tablet 10 mg PO BID Qty: 300 0RF Rx Instructions: 10mg bid for 7 days, then 5mg bid ondansetron 4 mg tablet,disintegrating 4 mg PO Q8H 4 Days Qty: 12 0RF naproxen [Naprosyn] 500 mg tablet 500 mg PO BID Qty: 20 0RF [place] [facility] [place] [facility] [place] Group] - 1 week Yaima Jones NP [Primary Care Provider] - 1 week Print Language: Hungarian
[2024-03-26 11:39] LABS: MANUAL DIFF FLAG NO
[2024-03-26 11:46] LABS: Basophils Absolute Auto 0.1 X10*3/uL (0.0-0.2); Basophils Percent Auto 0.7 % (0-2); Eosinophils Absolute Auto 0.3 X10*3/uL (0.0-0.4); Eosinophils Percent Auto 2.6 % (0-4); Hematocrit 46.1 % (42.0-52.0); Imm Gran Abs Auto 0.06 X10*3/uL (0.00-0.03); Imm Gran Pct Auto 0.6 % (0.0-0.4); Lymphocytes Absolute Auto 1.1 X10*3/uL (1.2-4.9); Lymphocytes Percent Auto 10.9 % (20-40); Mean Corpuscular HGB Conc 34.7 g/dl (31.0-36.0); Mean Corpuscular Hemoglobin 32.8 pg (27.0-33.0); Mean Corpuscular Volume 94.5 fL (80.0-98.0); Mean Platelet Volume 8.6 fL (9.4-12.4); Monocytes Absolute Auto 0.8 X10*3/uL (0.1-1.2); Monocytes Percent Auto 7.4 % (2-11); Neutrophils Absolute Auto 8.1 x10*3/uL (2.0-8.3); Neutrophils Percent Auto 77.8 % (45-73); Platelet Count 281 X10*3/uL (160-400); Red Blood Count 4.88 X10*6/uL (4.60-5.80); Red Cell Distribution Width 12.3 % (11.0-16.0); White Blood Count 10.4 X10*3/uL (4.8-10.8)
[2024-03-26 12:16] LABS: Alanine Aminotransferase 26 U/L (0-40); Albumin Level 4.2 g/dL (3.5-5.0); Alkaline Phosphatase 89 U/L (39-117); Anion Gap 13 (12-20); Aspartate Amino Transferase 26 U/L (5-37); Bilirubin Total 0.8 mg/dL (0.0-1.0); Blood Urea Nitrogen 15 mg/dL (9-16); Calcium 9.6 mg/dL (8.4-10.2); Carbon Dioxide 24 mmol/L (22-29); Chloride 102 mmol/L (96-108); Creatinine Clr Calc Pharmacy 77.9; Estimated Glomerular Filt Rate > 60; Glucose Random 125 mg/dL (60-115); Potassium 4.3 mmol/L (3.3-5.1); Sodium 135 mmol/L (135-145); Total Protein 7.3 g/dL (6.5-8.0)
[2024-03-26 12:30] VITALS: BP 152/68; PULSE 70; RESP 18; TEMP 37.1; O2SAT 96
[2024-03-26] MEDS: iohexoL 350 MG/ML 100 ML INFUS..BTL IV (13:51)
[2024-03-26 14:40] VITALS: BP 146/72; PULSE 76; RESP 18; TEMP 36.2; O2SAT 96
[2024-03-26 15:50] VITALS: BP 131/73; PULSE 75; RESP 18; TEMP 35.9; O2SAT 95
[2024-03-26 15:53] VITALS: BP 131/73; PULSE 75; RESP 18; TEMP 35.9; O2SAT 95
== END 2024-03-26 15:54 | disposition home or self-care (01) ==
PROVIDERS: Physician Assistant Medical; Emergency Provider Emergency Medicine Emergency Medical Services; PCP Nurse Practitioner Family
DX: R15.1 Fecal smearing (principal); I10 Essential (primary) hypertension; Z86.711 Personal history of pulmonary embolism; Z79.01 Long term (current) use of anticoagulants
CPT/HCPCS: 36415; 74177; 80053; 85025; 99284; Q9967

== ENCOUNTER 2024-09-30 14:35 | Outpatient (AMB) | payer MEDICARE, OTHER, SELFPAY ==
--- NOTE | 2024-09-30 14:37 | A.OFFVIS_ITS ---
Vital Signs 09/30/24 14:39 Height 5 ft 8 in Weight 240 lb 4.862 oz BMI 36.5 BP 141/68 H Blood Pressure Location Lt brachial Position Sitting Pulse 77 Intake Visit Reasons: Bowel leakeage Intake Note: Rodrigue presents in the office as a new patient for bowel leakage. CC: States that when he was first diagnosed he was having diarrhea and leaking clear fluid. He state she was just getting over COVID - he states he had a rash as well. [employer] Required: No Allergies lisinopril Adverse Reaction (Verified 09/30/24 14:39) Dizziness HPI Comments Details: 84 y.o M with PMH of who is here for fecal incontinence . Reports had a single episode of fecal incontinence when he had diarrhea 2/2 covid back in fall. Since then no other episodes. No acute GI issues. No abd pain, N,V, D, rectal bleeding. Prev colo in his mid 70s with Dr Johnson. [facility] Medical History HTN (hypertension) Surgical History (Updated 09/30/24 @ 14:40 by YARY Fuller) Hx of colonoscopy 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 Family History Father Hypertension Social History Household Members: Spouse Housing: House Do you presently have visiting nurse or other home services: No Alcohol intake: current Alcohol intake frequency: 0-2 drinks per day Alcohol type: beer and wine Patient Tobacco Use Status: Never used Tobacco service: No Current occupational status: retired Review of Systems Const All systems reviewed & are unremarkable except as noted in HPI and below Physical Exam Vital Signs: Last Vital Signs Pulse 77 09/30/24 14:39 BP 141/68 H 09/30/24 14:39 BMI result Body Mass Index 36.5 No apparent distress Nonicteric Abdomen soft, nondistended Alert and oriented x3, uses a cane to ambulate Assessment & Plan Assessment & Plan (1) Rectal leakage: Code(s): R15.9 - Full incontinence of feces Category: Medical Plan Resolved. Had one episode of incontinence when he had diarrhea during a covid illness. No concerns today. Advised fiber as bulking agent to be used routinely to avoid future recurrence. Pt also wondering if he needs a colo and reviewed that in the absence of any LGI sx, a diagnostic colo is not indicated at this time. Follow up as needed. Coding Level of Care Code New Pt Level 3 (70785) Diagnoses Rectal leakage R15.9
[2024-09-30 14:39] VITALS: BP 141/68; PULSE 77; BMI 36.5
== END 2024-09-30 15:20 | disposition home or self-care (01) ==
LOC: HO.HGI 14:35
PROVIDERS: PCP Nurse Practitioner Family; Visit Provider Internal Medicine
DX: R15.9 Full incontinence of feces (principal)
CPT/HCPCS: 99203

== ENCOUNTER → 2024-09-30 14:35 | Outpatient (BNVA) | payer MEDICARE, OTHER, SELFPAY | PROVIDERS: PCP Nurse Practitioner Family; Visit Provider Internal Medicine | DX: R15.9 Full incontinence of feces (principal) | CPT/HCPCS: 99202 ==